=== PATIENT | female | born 1955 | race Caucasian/White ===

== ENCOUNTER → 2016-06-18 | Outpatient (CLI) | payer OTHER ==
[~2016-06-18] MED LIST: ALDACTONE50 M1 PO; ANAPROX DS550 MG PO; ATORVASTATIN CA40 MG PO; BACTRIM DS 8001 TA1 PO; CEFEPIME1 GM/50 ML IV; CEFUROXIME AXE250 MG PO; CIPRO250 MG PO; CYCLOBENZAPRINE5 M3 PO; CYMBALTA60 MG PO; DAYPRO600 M1 PO; DUONEB 3 MG/3 ML3 M1 INH; FLEXERIL10 MG PO; HEP-LOCK100 U/ML IV; HYDROCODONE BIT1 T11 PO; INDERAL10 MG PO; K-Dur 20MEQ20 MEQ PO; KRISTALOSE20 GM/PACK PO; LASIX20 MG PO; LEVOTHYROXIN0.025 MG PO; LIPITOR; MACROBID100 M1 PO; MEDROL DOSEPAK4 MG PO; MOBIC15 MG PO; Micro K10 MEQ PO; Motrin,Rufen800 MG PO; NORCO 5-325 TA1 EACH PO; OMEPRAZOLE20 M1 PO; OMEPRAZOLE20 MG PO; OXYBUTYNIN CHLOR5 MG PO; PRENATAL1 TA3 PO; PRISTIQ100 MG PO; PRISTIQ50 MG PO; ROBAXIN750 MG PO; SPIRIVA18 MCG PO; STRATTERA100 MG; SYNTHROID25 MCG PO; TOVIAZ4 MG; VENTOLIN H0.09 MG/AC INH; VICODIN 5/500 505 MG PO; VITAMIN D2000 IU PO; VITAMIN E400 UNI1 PO
[2016-06-18 10:33] LABS: BASO % 0.7 % (0.0-1.0); EOS % 0.5 % (1.0-4.0); HEMATOCRIT 42.8 % (37.0-47.0); HEMOGLOBIN 14.6 g/dl (12.0-16.0); LYMPH # 1.6 10*3/uL (1.3-4.4); LYMPH % 26.8 % (27.0-41.0); MEAN CELL VOLUME 97.3 fl (81.0-99.0); MEAN CORPUSCULAR HGB 33.2 pg (27.0-31.0); MEAN CORPUSCULAR HGB CONC 34.1 g/dl (33.0-37.0); MEAN PLATELET VOLUME 9.8 fl (9.6-12.3); MONO # 0.6 10*3/uL (0.1-1.0); NEUT # 3.7 10*3/uL (2.3-7.9); NEUT % 61.8 % (47.0-73.0); PLATELET COUNT AUTOMATED 143 10*3/uL (130-400); RED CELL DISTRI WIDTH 13.6 % (0-14.5)
[2016-06-18 10:54] LABS: INTERNATIONAL NORM RATIO 1.1 (2.0-3.5); PROTHROMBIN TIME 11.6 SECONDS (9.0-12.4)
[2016-06-18 10:55] LABS: ALBUMIN 3.1 gm/dl (3.1-4.5); ALKALINE PHOSPHATASE 103 U/L (45-117); BILIRUBIN, DIRECT 0.4 mg/dL (0.0-0.2); BILIRUBIN, TOTAL 1.8 mg/dl (0.2-1.0); BUN 8 mg/dl (7-24); CARBON DIOXIDE 30 mmol/L (21-32); CHLORIDE 103 mmol/L (98-107); CHOLESTEROL 152 mg/dL (<200); EST GLOM FILT AFRICAN AMERICAN > 60 ml/min; GLUCOSE 129 mg/dL (65-99); HDL CHOLESTEROL 86 mg/dl (40-60); LDL CHOLESTEROL 53 mg/dL (9-159); POTASSIUM 4.2 mmol/L (3.5-5.1); SGOT/AST 44 IU/L (3-35); SGPT/ALT 40 U/L (12-78); SODIUM 142 mmol/L (136-145); TRIGLYCERIDES 63 mg/dl (<150); VLDL CHOLESTEROL 13 mg/dL (6-40)
== END | disposition home or self-care (01) ==
LOC: LAB 10:06
PROVIDERS: Nurse Practitioner Family
DX: K74.60 Unspecified cirrhosis of liver (principal); K75.81 Nonalcoholic steatohepatitis (NASH)

== ENCOUNTER → 2016-08-29 | Outpatient (CLI) | payer OTHER | END | disposition home or self-care (01) | LOC: MAMMO 12:00 | DX: Z12.31 Encounter for screening mammogram for malignant neoplasm of breast (principal); Z13.820 Encounter for screening for osteoporosis; Z78.0 Asymptomatic menopausal state; Z90.710 Acquired absence of both cervix and uterus; Z85.42 Personal history of malignant neoplasm of other parts of uterus ==

== ENCOUNTER → 2016-12-10 | Outpatient (CLI) | payer OTHER ==
[2016-12-10 09:07] LABS: BASO # 0.1 10*3/uL (0.0-0.1); EOS # 0.1 10*3/uL (0.0-0.4); EOS % 0.9 % (1.0-4.0); HEMOGLOBIN 14.7 g/dl (12.0-16.0); LYMPH # 1.7 10*3/uL (1.3-4.4); LYMPH % 29.5 % (27.0-41.0); MEAN CELL VOLUME 100.5 fl (81.0-99.0); MEAN CORPUSCULAR HGB 34.3 pg (27.0-31.0); MEAN CORPUSCULAR HGB CONC 34.2 g/dl (33.0-37.0); MEAN PLATELET VOLUME 9.5 fl (9.6-12.3); MONO # 0.6 10*3/uL (0.1-1.0); MONO % 10.4 % (3.0-9.0); NEUT # 3.4 10*3/uL (2.3-7.9); PLATELET COUNT AUTOMATED 167 10*3/uL (130-400); RED BLOOD COUNT 4.28 10*6/uL (4.10-5.10); RED CELL DISTRI WIDTH 13.4 % (0-14.5); WHITE BLOOD COUNT 5.9 10*3/uL (4.8-10.8)
[2016-12-10 09:35] LABS: INTERNATIONAL NORM RATIO 1.1 (2.0-3.5)
[2016-12-10 09:39] LABS: ALBUMIN 2.9 gm/dl (3.1-4.5); BILIRUBIN, DIRECT 0.4 mg/dL (0.0-0.2); BUN 9 mg/dl (7-24); CHLORIDE 102 mmol/L (98-107); CREATININE 0.98 mg/dL (0.55-1.02); LIPASE 237 U/L (73-393); SGOT/AST 45 IU/L (3-35); SGPT/ALT 30 U/L (12-78); SODIUM 138 mmol/L (136-145)
[2016-12-10 09:41] LABS: ALKALINE PHOSPHATASE 102 U/L (45-117)
== END | disposition home or self-care (01) ==
LOC: LAB 08:33 → US 09:30
PROVIDERS: Nurse Practitioner Family
DX: K74.69 Other cirrhosis of liver (principal); J44.9 Chronic obstructive pulmonary disease, unspecified; I50.9 Heart failure, unspecified; N20.0 Calculus of kidney; I85.00 Esophageal varices without bleeding; J40 Bronchitis, not specified as acute or chronic; E11.9 Type 2 diabetes mellitus without complications; E55.9 Vitamin D deficiency, unspecified

== ENCOUNTER 2017-04-01 13:43 | Inpatient (IN) | payer OTHER ==
[~2017-04-01] VITALS: Ht 175.2 cm; Wt 98.2 kg
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
[~2017-04-01 13:43] MED LIST changes: +KRISTALOSE20 GM PO; -KRISTALOSE20 GM/PACK PO
[2017-04-01 13:58] VITALS: BP 85/50
[2017-04-01 14:41] VITALS: BP 100/62
[2017-04-01 15:02] LABS: BASO % 0.3 % (0.0-1.0); HEMATOCRIT 44.7 % (37.0-47.0); HEMOGLOBIN 15.3 g/dl (12.0-16.0); LYMPH # 0.4 10*3/uL (1.3-4.4); LYMPH % 3.8 % (27.0-41.0); MEAN CELL VOLUME 98.2 fl (81.0-99.0); MEAN CORPUSCULAR HGB 33.6 pg (27.0-31.0); MEAN CORPUSCULAR HGB CONC 34.2 g/dl (33.0-37.0); MEAN PLATELET VOLUME 10.1 fl (9.6-12.3); MONO # 0.7 10*3/uL (0.1-1.0); MONO % 6.7 % (3.0-9.0); NEUT # 8.7 10*3/uL (2.3-7.9); NEUT % 88.7 % (47.0-73.0); PLATELET COUNT AUTOMATED 114 10*3/uL (130-400); RED BLOOD COUNT 4.55 10*6/uL (4.10-5.10); RED CELL DISTRI WIDTH 13.1 % (0-14.5); WHITE BLOOD COUNT 9.8 10*3/uL (4.8-10.8)
[2017-04-01 15:17] LABS: ALBUMIN 2.8 gm/dl (3.1-4.5); CREATININE 1.39 mg/dL (0.55-1.02); POTASSIUM 4.5 mmol/L (3.5-5.1); TOTAL PROTEIN 6.4 gm/dL (6.4-8.2)
[2017-04-01 15:25] LABS: INTERNATIONAL NORM RATIO 1.2 (2.0-3.5)
[2017-04-01 16:30] LABS: BILIRUBIN 2+ (NEGATIVE); BLOOD TRACE-INTACT (NEGATIVE); CLARITY SL CLOUDY (CLEAR); COLOR ORANGE (YELLOW); GLUCOSE TRACE (NEGATIVE); KETONE TRACE (NEGATIVE); NITRITE POSITIVE (NEGATIVE)
[2017-04-01 16:34] LABS: LEUKO ESTERASE 2+ (NEGATIVE)
[2017-04-01 16:39] LABS: BACTERIA 4+; WBC 51-100 wbc/hpf (0-5)
[2017-04-01 18:24] VITALS: BP 103/56
[2017-04-01] MEDS ORDERED: METFORMIN500 MG PO (18:43)
[2017-04-01] MEDS ORDERED: PROPRANOLOL HCL10 MG PO (18:43)
[2017-04-01] MEDS ORDERED: ZETIA10 MG PO (18:44)
[2017-04-01 19:37] VITALS: BP 106/50
[2017-04-01 19:40] VITALS: BP 101/52
[2017-04-02 04:00] VITALS: BP 103/56
[2017-04-02 07:47] LABS: HEMATOCRIT 38.8 % (37.0-47.0); HEMOGLOBIN 13.4 g/dl (12.0-16.0); MEAN CORPUSCULAR HGB 33.8 pg (27.0-31.0); MEAN CORPUSCULAR HGB CONC 34.5 g/dl (33.0-37.0); MEAN PLATELET VOLUME 10.6 fl (9.6-12.3); PLATELET COUNT AUTOMATED 100 10*3/uL (130-400); RED BLOOD COUNT 3.96 10*6/uL (4.10-5.10); RED CELL DISTRI WIDTH 13.1 % (0-14.5); WHITE BLOOD COUNT 8.4 10*3/uL (4.8-10.8)
[2017-04-02 08:00] VITALS: BP 108/50
[2017-04-02 08:26] LABS: ALBUMIN 2.5 gm/dl (3.1-4.5); BUN 20 mg/dl (7-24); CHLORIDE 103 mmol/L (98-107); CHOLESTEROL 68 mg/dL (<200); CREATININE 1.03 mg/dL (0.55-1.02); POTASSIUM 3.7 mmol/L (3.5-5.1); SGOT/AST 45 IU/L (3-35); SGPT/ALT 32 U/L (12-78); SODIUM 137 mmol/L (136-145); TRIGLYCERIDES 46 mg/dl (<150); VLDL CHOLESTEROL 9 mg/dL (6-40)
[2017-04-02 08:27] LABS: PLATELET SUFFICIENCY LOW (NORMAL); TOTAL CELLS COUNTED 100 #CELLS
[2017-04-02 08:32] LABS: ALKALINE PHOSPHATASE 56 U/L (45-117); HDL CHOLESTEROL 44 mg/dl (40-60); LDL CHOLESTEROL 15 mg/dL (9-159); TOTAL PROTEIN 5.8 gm/dL (6.4-8.2)
[2017-04-02 09:02] LABS: VITAMIN D, 25-HYDROXY 17.7 ng/mL (30-100)
[2017-04-02 12:00] VITALS: BP 108/52
[2017-04-02] MEDS ORDERED: VITAMIN E400 UNI3 PO (13:24)
[2017-04-02] MEDS ORDERED: PREDNISONE10 MG PO (15:33)
[2017-04-02] MEDS ORDERED: GLUCOTROL5 MG PO (15:33)
[2017-04-02] MEDS ORDERED: NATURE'S BLEND F1 MG PO (15:33)
[2017-04-02] MEDS ORDERED: VITAMIN D5000 UNI1 PO (15:33)
[2017-04-02] MEDS ORDERED: VIBRAMYCIN100 MG PO (15:33)
== END 2017-04-02 18:35 | disposition home or self-care (01) | DRG 871 ==
LOC: ED 13:43 → 5E 17:47 → EDHOLD 17:47 → 5E 18:30
PROVIDERS: Internal Medicine Hospice and Palliative Medicine; Physician Assistant
DX: A41.9 Sepsis, unspecified organism (principal); J18.9 Pneumonia, unspecified organism; N17.0 Acute kidney failure with tubular necrosis; E44.0 Moderate protein-calorie malnutrition; D69.6 Thrombocytopenia, unspecified; E83.42 Hypomagnesemia; K70.30 Alcoholic cirrhosis of liver without ascites; J44.0 Chronic obstructive pulmonary disease with (acute) lower respiratory infection; J44.1 Chronic obstructive pulmonary disease with (acute) exacerbation; N39.0 Urinary tract infection, site not specified; K76.0 Fatty (change of) liver, not elsewhere classified; R31.9 Hematuria, unspecified; R65.20 Severe sepsis without septic shock; E80.6 Other disorders of bilirubin metabolism; F17.210 Nicotine dependence, cigarettes, uncomplicated; E11.9 Type 2 diabetes mellitus without complications; E78.00 Pure hypercholesterolemia, unspecified; K21.9 Gastro-esophageal reflux disease without esophagitis; F32.9 Major depressive disorder, single episode, unspecified; E03.9 Hypothyroidism, unspecified; G47.33 Obstructive sleep apnea (adult) (pediatric); M54.5 Low back pain; G89.29 Other chronic pain; E66.09 Other obesity due to excess calories; R33.9 Retention of urine, unspecified; I49.3 Ventricular premature depolarization; Z68.33 Body mass index [BMI] 33.0-33.9, adult; Z90.710 Acquired absence of both cervix and uterus; Z82.49 Family history of ischemic heart disease and other diseases of the circulatory system; Z79.51 Long term (current) use of inhaled steroids; Z79.84 Long term (current) use of oral hypoglycemic drugs; Z71.6 Tobacco abuse counseling

== ENCOUNTER 2017-04-05 09:02 | Inpatient (IN) | payer OTHER ==
[~2017-04-05] VITALS: Ht 175.2 cm; Wt 99.6 kg
[~2017-04-05 09:02] MED LIST changes: +GLUCOTROL5 MG PO; +METFORMIN500 MG PO; +NATURE'S BLEND F1 MG PO; +PREDNISONE10 MG PO; +PROPRANOLOL HCL10 MG PO; +VIBRAMYCIN100 MG PO; +VITAMIN D5000 UNI1 PO; +VITAMIN E400 UNI3 PO; +ZETIA10 MG PO
[2017-04-05 09:11] VITALS: BP 119/71
[2017-04-05 09:27] VITALS: BP 119/71; BP 122/78
[2017-04-05 09:35] LABS: BASO % 0.2 % (0.0-1.0); EOS % 0.5 % (1.0-4.0); HEMATOCRIT 44.2 % (37.0-47.0); HEMOGLOBIN 15.1 g/dl (12.0-16.0); LYMPH # 0.8 10*3/uL (1.3-4.4); LYMPH % 13.3 % (27.0-41.0); MEAN CELL VOLUME 97.6 fl (81.0-99.0); MEAN CORPUSCULAR HGB 33.3 pg (27.0-31.0); MEAN CORPUSCULAR HGB CONC 34.2 g/dl (33.0-37.0); MEAN PLATELET VOLUME 9.9 fl (9.6-12.3); MONO # 0.7 10*3/uL (0.1-1.0); MONO % 11.6 % (3.0-9.0); NEUT # 4.5 10*3/uL (2.3-7.9); NEUT % 74.1 % (47.0-73.0); PLATELET COUNT AUTOMATED 107 10*3/uL (130-400); RED BLOOD COUNT 4.53 10*6/uL (4.10-5.10); RED CELL DISTRI WIDTH 13.3 % (0-14.5); WHITE BLOOD COUNT 6.1 10*3/uL (4.8-10.8)
[2017-04-05 09:52] LABS: ALBUMIN 2.6 gm/dl (3.1-4.5); ALKALINE PHOSPHATASE 99 U/L (45-117); BUN 12 mg/dl (7-24); CHLORIDE 99 mmol/L (98-107); CREATININE 0.77 mg/dL (0.55-1.02); SGOT/AST 116 IU/L (3-35); SGPT/ALT 84 U/L (12-78); SODIUM 136 mmol/L (136-145); TOTAL PROTEIN 6.3 gm/dL (6.4-8.2)
[2017-04-05 09:55] LABS: TROPONIN I < 0.015 ng/ml (<0.045)
[2017-04-05 09:59] LABS: BILIRUBIN NEGATIVE (NEGATIVE); BLOOD NEGATIVE (NEGATIVE); CLARITY CLEAR (CLEAR); COLOR YELLOW (YELLOW); GLUCOSE NEGATIVE (NEGATIVE); KETONE NEGATIVE (NEGATIVE); LEUKO ESTERASE TRACE (NEGATIVE); NITRITE NEGATIVE (NEGATIVE); SPECIFIC GRAVITY <= 1.005 (1.005-1.030)
[2017-04-05 10:05] LABS: BACTERIA TRACE
[2017-04-05 10:25] VITALS: BP 133/71
[2017-04-05 11:30] VITALS: BP 110/72
[2017-04-05] MEDS ORDERED: GLIPIZIDE5 MG PO (12:28)
[2017-04-05] MEDS ORDERED: METFORMIN500 MG PO (12:29)
[2017-04-05 16:00] VITALS: BP 125/62
[2017-04-05 20:00] VITALS: BP 109/65
[2017-04-06] VITALS: BP 115/71
[2017-04-06 07:13] LABS: HEMATOCRIT 39.7 % (37.0-47.0); HEMOGLOBIN 13.5 g/dl (12.0-16.0); LYMPH # 0.6 10*3/uL (1.3-4.4); LYMPH % 11.3 % (27.0-41.0); MEAN CELL VOLUME 97.1 fl (81.0-99.0); MEAN PLATELET VOLUME 10.3 fl (9.6-12.3); MONO # 0.6 10*3/uL (0.1-1.0); MONO % 10.8 % (3.0-9.0); NEUT # 4.4 10*3/uL (2.3-7.9); NEUT % 77.7 % (47.0-73.0); PLATELET COUNT AUTOMATED 88 10*3/uL (130-400); RED BLOOD COUNT 4.09 10*6/uL (4.10-5.10); RED CELL DISTRI WIDTH 13.1 % (0-14.5); WHITE BLOOD COUNT 5.7 10*3/uL (4.8-10.8)
[2017-04-06 07:41] LABS: ALBUMIN 2.3 gm/dl (3.1-4.5); ALKALINE PHOSPHATASE 87 U/L (45-117); BUN 13 mg/dl (7-24); CHLORIDE 102 mmol/L (98-107); CREATININE 0.72 mg/dL (0.55-1.02); SGOT/AST 67 IU/L (3-35); SGPT/ALT 63 U/L (12-78); TOTAL PROTEIN 5.5 gm/dL (6.4-8.2)
[2017-04-06 07:55] LABS: SODIUM 135 mmol/L (136-145)
[2017-04-06 08:00] VITALS: BP 124/66
[2017-04-06 12:00] VITALS: BP 123/73
[2017-04-06 16:00] VITALS: BP 122/64
[2017-04-06 20:00] VITALS: BP 124/55
[2017-04-07] VITALS: BP 120/63
[2017-04-07 07:04] LABS: HEMATOCRIT 41.2 % (37.0-47.0); HEMOGLOBIN 14.4 g/dl (12.0-16.0); LYMPH # 0.8 10*3/uL (1.3-4.4); LYMPH % 11.2 % (27.0-41.0); MEAN CELL VOLUME 94.5 fl (81.0-99.0); MEAN PLATELET VOLUME 10.3 fl (9.6-12.3); MONO # 0.7 10*3/uL (0.1-1.0); MONO % 9.5 % (3.0-9.0); NEUT # 5.7 10*3/uL (2.3-7.9); NEUT % 78.5 % (47.0-73.0); PLATELET COUNT AUTOMATED 88 10*3/uL (130-400); RED BLOOD COUNT 4.36 10*6/uL (4.10-5.10); WHITE BLOOD COUNT 7.3 10*3/uL (4.8-10.8)
[2017-04-07 07:20] LABS: BUN 13 mg/dl (7-24); CHLORIDE 98 mmol/L (98-107); CREATININE 0.82 mg/dL (0.55-1.02); POTASSIUM 3.9 mmol/L (3.5-5.1); SODIUM 134 mmol/L (136-145)
[2017-04-07 08:00] VITALS: BP 156/72
[2017-04-07 12:00] VITALS: BP 133/63
[2017-04-07 16:00] VITALS: BP 124/62
[2017-04-07 20:00] VITALS: BP 135/74
[2017-04-08] VITALS: BP 133/78; BP 144/61
[2017-04-08 04:00] VITALS: BP 101/54
[2017-04-08 07:00] LABS: HEMOGLOBIN 14.2 g/dl (12.0-16.0); MEAN CORPUSCULAR HGB 32.6 pg (27.0-31.0); MEAN CORPUSCULAR HGB CONC 34.6 g/dl (33.0-37.0); MEAN PLATELET VOLUME 10.3 fl (9.6-12.3); PLATELET COUNT AUTOMATED 77 10*3/uL (130-400); RED BLOOD COUNT 4.36 10*6/uL (4.10-5.10); RED CELL DISTRI WIDTH 13.1 % (0-14.5); WHITE BLOOD COUNT 5.4 10*3/uL (4.8-10.8)
[2017-04-08 07:32] LABS: CHLORIDE 98 mmol/L (98-107); SODIUM 135 mmol/L (136-145)
[2017-04-08 07:36] LABS: PLATELET SUFFICIENCY LOW (NORMAL); TOTAL CELLS COUNTED 100 #CELLS
[2017-04-08 07:43] LABS: BUN 15 mg/dl (7-24); CREATININE 0.83 mg/dL (0.55-1.02)
[2017-04-08 08:00] VITALS: BP 102/62
[2017-04-08 12:00] VITALS: BP 120/68
[2017-04-08 16:00] VITALS: BP 125/69
[2017-04-08 20:00] VITALS: BP 112/56
[2017-04-09] VITALS: BP 132/67
[2017-04-09 06:54] LABS: HEMATOCRIT 39.4 % (37.0-47.0); HEMOGLOBIN 13.8 g/dl (12.0-16.0); MEAN CORPUSCULAR HGB 32.9 pg (27.0-31.0); MEAN PLATELET VOLUME 10.2 fl (9.6-12.3); PLATELET COUNT AUTOMATED 97 10*3/uL (130-400); RED BLOOD COUNT 4.19 10*6/uL (4.10-5.10); WHITE BLOOD COUNT 6.4 10*3/uL (4.8-10.8)
[2017-04-09 07:08] LABS: BUN 15 mg/dl (7-24); CHLORIDE 98 mmol/L (98-107); CREATININE 0.77 mg/dL (0.55-1.02); POTASSIUM 3.8 mmol/L (3.5-5.1); SODIUM 133 mmol/L (136-145)
[2017-04-09 07:32] LABS: TOTAL CELLS COUNTED 100 #CELLS
[2017-04-09 07:33] LABS: PLATELET SUFFICIENCY LOW (NORMAL)
[2017-04-09 08:00] VITALS: BP 141/70
[2017-04-09] MEDS ORDERED: DULE1ARO INH (09:39)
[2017-04-09] MEDS ORDERED: PREDNISONE10 MG PO (09:39)
[2017-04-09] MEDS ORDERED: LEVAQUIN500 M2 PO (09:39)
[2017-04-09] MEDS ORDERED: DUONEB 3 MG/3 ML3 M1 INH (09:41)
[2017-04-09] MEDS ORDERED: NEBULIZER (09:41)
[2017-04-09 12:00] VITALS: BP 110/50
== END 2017-04-09 16:03 | disposition home or self-care (01) | DRG 193 ==
LOC: ED 09:02 → EDHOLD 10:30 → 5E 10:30
PROVIDERS: Family Medicine Adult Medicine; Internal Medicine; Internal Medicine Hospice and Palliative Medicine; Nurse Practitioner Family
DX: J18.9 Pneumonia, unspecified organism (principal); J96.21 Acute and chronic respiratory failure with hypoxia; E43 Unspecified severe protein-calorie malnutrition; E11.65 Type 2 diabetes mellitus with hyperglycemia; E87.1 Hypo-osmolality and hyponatremia; J44.0 Chronic obstructive pulmonary disease with (acute) lower respiratory infection; A59.9 Trichomoniasis, unspecified; J44.1 Chronic obstructive pulmonary disease with (acute) exacerbation; E03.9 Hypothyroidism, unspecified; F17.200 Nicotine dependence, unspecified, uncomplicated; G47.33 Obstructive sleep apnea (adult) (pediatric); F32.9 Major depressive disorder, single episode, unspecified; E55.9 Vitamin D deficiency, unspecified; K21.9 Gastro-esophageal reflux disease without esophagitis; E87.6 Hypokalemia; E53.8 Deficiency of other specified B group vitamins; E78.00 Pure hypercholesterolemia, unspecified; Z85.41 Personal history of malignant neoplasm of cervix uteri; Z90.710 Acquired absence of both cervix and uterus; Z80.41 Family history of malignant neoplasm of ovary; Z71.6 Tobacco abuse counseling; Z79.51 Long term (current) use of inhaled steroids; Z79.2 Long term (current) use of antibiotics; Z79.84 Long term (current) use of oral hypoglycemic drugs; Z79.899 Other long term (current) drug therapy; Z68.32 Body mass index [BMI] 32.0-32.9, adult

== ENCOUNTER → 2017-06-23 | Outpatient (CLI) | payer OTHER ==
[~2017-06-23] MED LIST changes: +DULE1ARO INH; +GLIPIZIDE5 MG PO; +LEVAQUIN500 M2 PO; +NEBULIZER
== END | disposition home or self-care (01) ==
LOC: LAB 14:29 → CT 15:00 → US 16:00
DX: K80.50 Calculus of bile duct without cholangitis or cholecystitis without obstruction (principal); K74.60 Unspecified cirrhosis of liver; Z90.710 Acquired absence of both cervix and uterus

== ENCOUNTER → 2017-06-24 | Outpatient (CLI) | payer OTHER ==
[2017-06-24 12:45] LABS: BILIRUBIN NEGATIVE (NEGATIVE); BLOOD TRACE-INTACT (NEGATIVE); CLARITY CLOUDY (CLEAR); COLOR YELLOW (YELLOW); GLUCOSE NEGATIVE (NEGATIVE); KETONE NEGATIVE (NEGATIVE); LEUKO ESTERASE 2+ (NEGATIVE); NITRITE NEGATIVE (NEGATIVE); PH 5.5 (5.0-9.0)
[2017-06-24 13:17] LABS: BACTERIA 4+; WBC TNTC wbc/hpf (0-5)
== END | disposition home or self-care (01) ==
LOC: LAB 12:06
PROVIDERS: Urology
DX: N39.0 Urinary tract infection, site not specified (principal)

== ENCOUNTER 2017-09-12 11:50 | Emergency (ER) | payer OTHER ==
[~2017-09-12] VITALS: Ht 175.2 cm; Wt 90.7 kg
[2017-09-12 11:51] VITALS: BP 112/59
[2017-09-12] MEDS ORDERED: PREDNISONE10 MG PO (12:16)
== END 2017-09-12 12:24 | disposition home or self-care (01) ==
LOC: ED 11:50
DX: L25.9 Unspecified contact dermatitis, unspecified cause (principal); J44.9 Chronic obstructive pulmonary disease, unspecified; K21.9 Gastro-esophageal reflux disease without esophagitis; E78.00 Pure hypercholesterolemia, unspecified; E03.9 Hypothyroidism, unspecified; G43.909 Migraine, unspecified, not intractable, without status migrainosus; E66.9 Obesity, unspecified; G47.33 Obstructive sleep apnea (adult) (pediatric); E11.65 Type 2 diabetes mellitus with hyperglycemia; F17.200 Nicotine dependence, unspecified, uncomplicated; Z90.710 Acquired absence of both cervix and uterus; Z79.899 Other long term (current) drug therapy

== ENCOUNTER → 2017-09-17 | Outpatient (CLI) | payer OTHER ==
[2017-09-17 13:16] LABS: CLARITY TURBID (CLEAR); COLOR YELLOW (YELLOW); GLUCOSE NEGATIVE (NEGATIVE)
[2017-09-17 13:17] LABS: BILIRUBIN NEGATIVE (NEGATIVE); BLOOD 1+ (NEGATIVE); KETONE NEGATIVE (NEGATIVE); LEUKO ESTERASE 3+ (NEGATIVE); NITRITE POSITIVE (NEGATIVE); PH 6.5 (5.0-9.0); SPECIFIC GRAVITY 1.005 (1.005-1.030); UROBILINOGEN 0.2 E.U./dl (0.2-1.0)
[2017-09-17 13:23] LABS: WBC TNTC wbc/hpf (0-5)
[2017-09-17 13:26] LABS: BACTERIA 4+; EPITHELIAL CELLS 15-20
[2017-09-17 13:27] LABS: RBC 16-20 rbc/hpf (0-2)
== END | disposition home or self-care (01) ==
LOC: LAB 10:40
PROVIDERS: Urology
DX: N39.0 Urinary tract infection, site not specified (principal)

== ENCOUNTER → 2017-10-03 | Outpatient (CLI) | payer OTHER | END | disposition home or self-care (01) | LOC: US 07:38 | DX: K80.20 Calculus of gallbladder without cholecystitis without obstruction (principal) ==

== ENCOUNTER → 2017-12-12 | Day surgery (SDC) | payer OTHER ==
[~2017-12-12] VITALS: Ht 175.2 cm; Wt 89.4 kg
[~2017-12-12] MED LIST changes: +CIPRO500 MG PO; +FUROSEMIDE40 MG PO; +LEVOTHYROXINE125 MCG PO; +POTASSIUM CHLO10 ME5 PO; +PREDNISONE20 M1 PO; +SPIRONOLACTONE50 M1 PO
--- NOTE | ~2017-12-12 | PROC NOTE ---
[place], [place] PROCEDURE NOTE NAME[id number] UNIT #: [id number] ROOM: DOCTOR: TOBIN SWEENEY MD BIRTHDATE: [birth year] DOS: PROCEDURE: 1. Esophagogastroduodenoscopy and biopsy. 2. Colonoscopy and polypectomy. INDICATIONS: Cirrhosis and history of colon polyps. An informed consent was obtained from the patient after indication of procedures, the alternatives and potential complications were explained to her. PROCEDURE MEDICATION: Sedation was administered by Anesthesiology Department. Scope used was Olympus pediatric colonoscope variable stiffness GIF-180, depth of insertion of the upper endoscopy was to the descending duodenum and with the colonoscopy to the cecum, which was identified by the usual landmarks, the appendiceal orifice, ileocecal valve and triangular fold, in addition to transillumination in the right lower quadrant. FINDINGS: After adequate sedation, the patient was placed in left lateral decubitus position. Upper endoscopy was performed first. The scope was introduced under direct visualization through the upper esophageal sphincter into the esophagus. Esophageal mucosa showed evidence of a small grade 1 esophageal varices. The lower esophageal sphincter was identified at 38 cm from incisors. Stomach was then intubated. Gastric mucosa inspected. Mild portal gastropathy pattern was noted in addition to moderate gastritis in the antrum and a small gastric AVM. A GONZALEZ test was performed from gastric antrum and body. On retroflexed views in the fundus, no hiatal hernia was seen. Pylorus was intubated easily. The duodenal bulb and descending duodenum were within normal range. The scope was then withdrawn after the stomach was decompressed. We then proceeded with the colonoscopy. Rectal examination showed a diminished sphincter tone and no external hemorrhoids. The scope was introduced into the rectum, then advanced to the cecum with mild difficulty due to looping the left colon. The prep was adequate. Two polyps were identified in the distal transverse colon, a 5 and a 10 mm polyps, both polyps were removed with the cold mini snare and recovered. The remaining colon mucosa showed evidence of moderate left-sided diverticular disease and no other abnormalities. Retroflexed views in the rectum revealed grade 1 internal hemorrhoids. The scope was then withdrawn after the rectum was decompressed. The patient tolerated the procedures well. IMPRESSION: 1. Small grade 1 esophageal varices. 2. Mild portal gastropathy. 3. Gastritis, GONZALEZ test performed. 4. Small gastric AVM. 5. Colon polyps x 2, removed. 6. Left-sided diverticular disease. 7. Internal hemorrhoids. [place], [place] PROCEDURE NOTE NAME: LARISA ARCHER UNIT #: [id number] ROOM: DOCTOR: [place],TOBIN BIRTHDATE: [birth year] PLAN: We will review the histopathology and GONZALEZ test results and treat the patient accordingly. Office followup will be scheduled in 1-2 weeks. TOBIN SWEENEY MD CM:PROCNOTE:PROCEDURE NOTE [id number] TOBIN SWEENEY MD
[2017-12-12 09:27] VITALS: BP 113/52
[2017-12-12 09:45] VITALS: BP 115/49
[2017-12-12 10:00] VITALS: BP 104/53
[2017-12-12 10:15] VITALS: BP 121/61
[2017-12-12 10:26] VITALS: BP 130/61
== END | disposition home or self-care (01) ==
LOC: SDC 12-09 02:02
DX: K63.5 Polyp of colon (principal); K57.30 Diverticulosis of large intestine without perforation or abscess without bleeding; K56.2 Volvulus; K64.0 First degree hemorrhoids; K29.60 Other gastritis without bleeding; Q27.33 Arteriovenous malformation of digestive system vessel; K74.60 Unspecified cirrhosis of liver; I85.10 Secondary esophageal varices without bleeding; K21.9 Gastro-esophageal reflux disease without esophagitis; I50.9 Heart failure, unspecified; E78.00 Pure hypercholesterolemia, unspecified; E11.40 Type 2 diabetes mellitus with diabetic neuropathy, unspecified; J44.9 Chronic obstructive pulmonary disease, unspecified; F41.8 Other specified anxiety disorders; F17.210 Nicotine dependence, cigarettes, uncomplicated; M19.90 Unspecified osteoarthritis, unspecified site; E66.9 Obesity, unspecified; Z86.010 Personal history of colon polyps; Z86.73 Personal history of transient ischemic attack (TIA), and cerebral infarction without residual deficits; Z90.710 Acquired absence of both cervix and uterus; Z85.42 Personal history of malignant neoplasm of other parts of uterus; Z98.41 Cataract extraction status, right eye; Z79.899 Other long term (current) drug therapy; Z79.84 Long term (current) use of oral hypoglycemic drugs; Z88.1 Allergy status to other antibiotic agents; Z88.8 Allergy status to other drugs, medicaments and biological substances; Z80.9 Family history of malignant neoplasm, unspecified

== ENCOUNTER → 2017-12-17 | Outpatient (CLI) | payer OTHER | END | disposition home or self-care (01) | LOC: US 07:30 | DX: K80.20 Calculus of gallbladder without cholecystitis without obstruction (principal); K74.60 Unspecified cirrhosis of liver; K82.8 Other specified diseases of gallbladder; Z87.442 Personal history of urinary calculi ==

== ENCOUNTER → 2018-05-14 | Outpatient (CLI) | payer OTHER ==
[2018-05-14 08:54] LABS: BASO # 0.1 10*3/uL (0.0-0.1); BILIRUBIN NEGATIVE (NEGATIVE); BLOOD NEGATIVE (NEGATIVE); CLARITY CLOUDY (CLEAR); COLOR YELLOW (YELLOW); EOS # 0.1 10*3/uL (0.0-0.4); EOS % 0.8 % (1.0-4.0); GLUCOSE NEGATIVE (NEGATIVE); KETONE NEGATIVE (NEGATIVE); LEUKO ESTERASE 2+ (NEGATIVE); LYMPH # 1.8 10*3/uL (1.3-4.4); MEAN CELL VOLUME 97.9 fl (81.0-99.0); MEAN CORPUSCULAR HGB 32.6 pg (27.0-31.0); MEAN CORPUSCULAR HGB CONC 33.3 g/dl (33.0-37.0); MEAN PLATELET VOLUME 9.8 fl (9.6-12.3); MONO # 0.7 10*3/uL (0.1-1.0); NEUT # 3.4 10*3/uL (2.3-7.9); NITRITE POSITIVE (NEGATIVE); PLATELET COUNT AUTOMATED 145 10*3/uL (130-400); RED BLOOD COUNT 4.29 10*6/uL (4.10-5.10); RED CELL DISTRI WIDTH 13.4 % (0-14.5); SPECIFIC GRAVITY 1.015 (1.005-1.030); UROBILINOGEN 0.2 E.U./dl (0.2-1.0); WHITE BLOOD COUNT 6.1 10*3/uL (4.8-10.8)
[2018-05-14 09:18] LABS: ALBUMIN 2.7 gm/dl (3.1-4.5); ALKALINE PHOSPHATASE 120 U/L (45-117); BUN 10 mg/dl (7-24); CHLORIDE 107 mmol/L (98-107); CREATININE 0.81 mg/dL (0.55-1.02); POTASSIUM 4.4 mmol/L (3.5-5.1); SGOT/AST 27 IU/L (3-35); SGPT/ALT 25 U/L (12-78); SODIUM 140 mmol/L (136-145); TOTAL PROTEIN 6.5 gm/dL (6.4-8.2)
[2018-05-14 09:20] LABS: BACTERIA 4+; WBC TNTC wbc/hpf (0-5)
== END | disposition home or self-care (01) ==
LOC: LAB 08:25 → CT 09:00
PROVIDERS: Urology
DX: N20.0 Calculus of kidney (principal); R31.9 Hematuria, unspecified

== ENCOUNTER → 2018-09-23 | Outpatient (CLI) | payer OTHER ==
[2018-09-23 11:17] LABS: BASO # 0.1 10*3/uL (0.0-0.1); BASO % 0.8 % (0.0-1.0); EOS % 0.6 % (1.0-4.0); HEMOGLOBIN 12.8 g/dl (12.0-16.0); LYMPH # 1.9 10*3/uL (1.3-4.4); LYMPH % 30.1 % (27.0-41.0); MEAN CORPUSCULAR HGB 32.2 pg (27.0-31.0); MEAN CORPUSCULAR HGB CONC 32.8 g/dl (33.0-37.0); MEAN PLATELET VOLUME 9.8 fl (9.6-12.3); MONO # 0.7 10*3/uL (0.1-1.0); MONO % 11.7 % (3.0-9.0); NEUT # 3.5 10*3/uL (2.3-7.9); NEUT % 56.6 % (47.0-73.0); PLATELET COUNT AUTOMATED 158 10*3/uL (130-400); RED BLOOD COUNT 3.98 10*6/uL (4.10-5.10); RED CELL DISTRI WIDTH 13.5 % (0-14.5); WHITE BLOOD COUNT 6.2 10*3/uL (4.8-10.8)
[2018-09-23 11:40] LABS: BILIRUBIN NEGATIVE (NEGATIVE); BLOOD 1+ (NEGATIVE); CLARITY CLOUDY (CLEAR); COLOR YELLOW (YELLOW); GLUCOSE NEGATIVE (NEGATIVE); KETONE NEGATIVE (NEGATIVE); LEUKO ESTERASE 2+ (NEGATIVE); NITRITE POSITIVE (NEGATIVE); SPECIFIC GRAVITY 1.025 (1.005-1.030)
[2018-09-23 11:44] LABS: BUN 10 mg/dl (7-24); CHLORIDE 106 mmol/L (98-107); POTASSIUM 4.3 mmol/L (3.5-5.1); SGOT/AST 26 IU/L (3-35); SODIUM 141 mmol/L (136-145); THYROXINE (T4) TOTAL 12.8 ug/dl (4.8-13.9); TOTAL PROTEIN 6.2 gm/dL (6.4-8.2)
[2018-09-23 11:45] LABS: ALKALINE PHOSPHATASE 92 U/L (45-117); SGPT/ALT 23 U/L (12-78); T3 UPTAKE 39 % (31-39)
[2018-09-23 12:45] LABS: BACTERIA 4+; WBC TNTC wbc/hpf (0-5)
[2018-09-29 16:09] LABS: BUSHITE 0.67 ratio (0.00-3.00); CALCIUM OXALATE 4.69 ratio (0.00-6.00); CALCIUM, URINE 10.2 mg/dL (Not Estab.); CALCIUM, URINE 158.1 mg/24 hr (100.0-300.0); CITRIC ACID (CITRATE) 510 mg/24 hr (320-1240); CREATININE, URINE 41.4 mg/dL (Not Estab.); CREATININE, URINE 641.7 mg/24 hr (800.0-1800.0); MAGNESIUM, URINE 2.4 mg/dL (Not Estab.); MONOSODIUM URATE 0.65 ratio (0.00-4.00); OSMOLALITY, URINE 194 (300-900); SODIUM, URINE 37 mmol/L (Not Estab.); SODIUM, URINE 57 (39-258); STRUVITE 0.01 ratio (0.00-1.00); URIC ACID 0.69 ratio (0.00-1.20)
== END | disposition home or self-care (01) ==
LOC: LAB 10:47
PROVIDERS: Urology
DX: N20.0 Calculus of kidney (principal)

== ENCOUNTER → 2018-11-19 | Outpatient (CLI) | payer OTHER | END | disposition home or self-care (01) | LOC: RAD 11:33 | DX: N20.0 Calculus of kidney (principal) ==

== ENCOUNTER → 2018-12-09 | Outpatient (CLI) | payer OTHER | END | disposition home or self-care (01) | LOC: US 14:50 | DX: N20.0 Calculus of kidney (principal) ==

== ENCOUNTER → 2019-01-09 | Outpatient (CLI) | payer OTHER ==
[2019-01-18 09:07] LABS: BUSHITE 1.86 ratio (0.00-3.00); CALCIUM OXALATE 4.19 ratio (0.00-6.00); CALCIUM, URINE 15.1 mg/dL (Not Estab.); CALCIUM, URINE 226.5 mg/24 hr (100.0-300.0); CITRIC ACID (CITRATE) 708 mg/24 hr (320-1240); CREATININE, URINE 51.5 mg/dL (Not Estab.); CREATININE, URINE 772.5 mg/24 hr (800.0-1800.0); MAGNESIUM, URINE 3.3 mg/dL (Not Estab.); MONOSODIUM URATE 1.31 ratio (0.00-4.00); OSMOLALITY, URINE 304 (300-900); SODIUM, URINE 59 mmol/L (Not Estab.); SODIUM, URINE 89 (39-258); STRUVITE 0.01 ratio (0.00-1.00); URIC ACID 0.69 ratio (0.00-1.20); pH 24 HR URINE 6.1 (.)
== END | disposition home or self-care (01) ==
LOC: LAB 10:51
PROVIDERS: Urology
DX: N20.0 Calculus of kidney (principal)

== ENCOUNTER → 2019-02-02 | Outpatient (CLI) | payer OTHER ==
[2019-02-02 13:00] LABS: BASO # 0.1 10*3/uL (0.0-0.1); BASO % 0.9 % (0.0-1.0); EOS # 0.1 10*3/uL (0.0-0.4); EOS % 1.1 % (1.0-4.0); HEMATOCRIT 39.8 % (37.0-47.0); HEMOGLOBIN 13.1 g/dl (12.0-16.0); LYMPH # 2.4 10*3/uL (1.3-4.4); LYMPH % 34.1 % (27.0-41.0); MEAN CELL VOLUME 96.1 fl (81.0-99.0); MEAN CORPUSCULAR HGB 31.6 pg (27.0-31.0); MEAN CORPUSCULAR HGB CONC 32.9 g/dl (33.0-37.0); MEAN PLATELET VOLUME 9.8 fl (9.6-12.3); MONO # 0.8 10*3/uL (0.1-1.0); MONO % 12.1 % (3.0-9.0); NEUT # 3.6 10*3/uL (2.3-7.9); NEUT % 51.5 % (47.0-73.0); PLATELET COUNT AUTOMATED 184 10*3/uL (130-400); RED BLOOD COUNT 4.14 10*6/uL (4.10-5.10); RED CELL DISTRI WIDTH 13.2 % (0-14.5)
[2019-02-02 13:22] LABS: ALKALINE PHOSPHATASE 100 U/L (45-117); BUN 14 mg/dl (7-24); CHLORIDE 102 mmol/L (98-107); CREATININE 1.07 mg/dL (0.55-1.02); POTASSIUM 4.1 mmol/L (3.5-5.1); SGOT/AST 28 IU/L (3-35); SGPT/ALT 25 U/L (12-78); SODIUM 134 mmol/L (136-145); TOTAL PROTEIN 6.8 gm/dL (6.4-8.2)
[2019-02-02 17:02] LABS: BILIRUBIN NEGATIVE (NEGATIVE); BLOOD NEGATIVE (NEGATIVE); CLARITY CLOUDY (CLEAR); COLOR YELLOW (YELLOW); GLUCOSE NEGATIVE (NEGATIVE); KETONE NEGATIVE (NEGATIVE); LEUKO ESTERASE 1+ (NEGATIVE); NITRITE POSITIVE (NEGATIVE); SPECIFIC GRAVITY <= 1.005 (1.005-1.030); UROBILINOGEN 0.2 E.U./dl (0.2-1.0)
[2019-02-02 17:16] LABS: BACTERIA 3+; WBC 31-40 wbc/hpf (0-5)
== END | disposition home or self-care (01) ==
LOC: LAB 12:31 → CT 13:00
PROVIDERS: Nurse Practitioner Family
DX: K74.60 Unspecified cirrhosis of liver (principal); N39.0 Urinary tract infection, site not specified; R31.9 Hematuria, unspecified; E11.9 Type 2 diabetes mellitus without complications

== ENCOUNTER → 2019-03-05 | Outpatient (CLI) | payer OTHER | END | disposition home or self-care (01) | LOC: US 09:08 | DX: K74.69 Other cirrhosis of liver (principal); K83.8 Other specified diseases of biliary tract; R16.1 Splenomegaly, not elsewhere classified ==

== ENCOUNTER → 2019-03-12 | Day surgery (SDC) | payer OTHER ==
[~2019-03-12] VITALS: Ht 175.2 cm; Wt 86.2 kg
[2019-03-12 07:35] VITALS: BP 105/59
[2019-03-12 09:10] VITALS: BP 106/53
[2019-03-12 09:25] VITALS: BP 102/53
[2019-03-12 09:40] VITALS: BP 107/62
== END | disposition home or self-care (01) ==
LOC: SDC 03-11 08:00
DX: K29.70 Gastritis, unspecified, without bleeding (principal); K74.60 Unspecified cirrhosis of liver; I50.9 Heart failure, unspecified; J44.9 Chronic obstructive pulmonary disease, unspecified; E11.9 Type 2 diabetes mellitus without complications; K21.9 Gastro-esophageal reflux disease without esophagitis; F41.9 Anxiety disorder, unspecified; F32.9 Major depressive disorder, single episode, unspecified; Z98.890 Other specified postprocedural states; Z79.4 Long term (current) use of insulin; Z79.899 Other long term (current) drug therapy; Z86.73 Personal history of transient ischemic attack (TIA), and cerebral infarction without residual deficits; Z85.42 Personal history of malignant neoplasm of other parts of uterus; Z83.3 Family history of diabetes mellitus

== ENCOUNTER → 2019-04-20 | Outpatient (CLI) | payer OTHER ==
[2019-04-20 10:09] LABS: BASO % 0.7 % (0.0-1.0); EOS # 0.1 10*3/uL (0.0-0.4); EOS % 1.4 % (1.0-4.0); HEMATOCRIT 38.1 % (37.0-47.0); HEMOGLOBIN 12.7 g/dl (12.0-16.0); LYMPH # 1.7 10*3/uL (1.3-4.4); LYMPH % 29.3 % (27.0-41.0); MEAN CELL VOLUME 94.8 fl (81.0-99.0); MEAN CORPUSCULAR HGB 31.6 pg (27.0-31.0); MEAN CORPUSCULAR HGB CONC 33.3 g/dl (33.0-37.0); MEAN PLATELET VOLUME 9.9 fl (9.6-12.3); MONO # 0.6 10*3/uL (0.1-1.0); MONO % 11.1 % (3.0-9.0); NEUT # 3.2 10*3/uL (2.3-7.9); NEUT % 57.1 % (47.0-73.0); PLATELET COUNT AUTOMATED 146 10*3/uL (130-400); RED BLOOD COUNT 4.02 10*6/uL (4.10-5.10); RED CELL DISTRI WIDTH 13.3 % (0-14.5); WHITE BLOOD COUNT 5.7 10*3/uL (4.8-10.8)
[2019-04-20 10:39] LABS: ALBUMIN 2.9 gm/dl (3.1-4.5); ALKALINE PHOSPHATASE 92 U/L (45-117); BUN 14 mg/dl (7-24); CHLORIDE 104 mmol/L (98-107); CREATININE 1.02 mg/dL (0.55-1.02); SGOT/AST 20 IU/L (3-35); SGPT/ALT 25 U/L (12-78); SODIUM 137 mmol/L (136-145); TOTAL PROTEIN 6.4 gm/dL (6.4-8.2)
[2019-04-20 11:58] LABS: BILIRUBIN NEGATIVE (NEGATIVE); BLOOD TRACE-LYSED (NEGATIVE); CLARITY SL CLOUDY (CLEAR); COLOR YELLOW (YELLOW); GLUCOSE NEGATIVE (NEGATIVE); KETONE NEGATIVE (NEGATIVE); LEUKO ESTERASE TRACE (NEGATIVE); NITRITE POSITIVE (NEGATIVE); UROBILINOGEN 0.2 E.U./dl (0.2-1.0)
[2019-04-20 12:11] LABS: WBC TNTC wbc/hpf (0-5)
[2019-04-20 12:12] LABS: BACTERIA 2+
== END | disposition home or self-care (01) ==
LOC: LAB 09:25 → CT 10:00
PROVIDERS: Nurse Practitioner Family
DX: K80.20 Calculus of gallbladder without cholecystitis without obstruction (principal); N39.0 Urinary tract infection, site not specified; E11.9 Type 2 diabetes mellitus without complications; R31.9 Hematuria, unspecified

== ENCOUNTER → 2019-06-01 | Outpatient (CLI) | payer OTHER ==
[2019-06-01 09:37] LABS: BASO # 0.1 10*3/uL (0.0-0.1); EOS # 0.1 10*3/uL (0.0-0.4); EOS % 1.5 % (1.0-4.0); HEMATOCRIT 39.5 % (37.0-47.0); HEMOGLOBIN 12.5 g/dl (12.0-16.0); LYMPH # 1.9 10*3/uL (1.3-4.4); LYMPH % 32.1 % (27.0-41.0); MEAN CELL VOLUME 96.8 fl (81.0-99.0); MEAN CORPUSCULAR HGB 30.6 pg (27.0-31.0); MEAN CORPUSCULAR HGB CONC 31.6 g/dl (33.0-37.0); MEAN PLATELET VOLUME 9.6 fl (9.6-12.3); MONO # 0.6 10*3/uL (0.1-1.0); MONO % 10.3 % (3.0-9.0); NEUT # 3.2 10*3/uL (2.3-7.9); NEUT % 54.8 % (47.0-73.0); PLATELET COUNT AUTOMATED 173 10*3/uL (130-400); RED BLOOD COUNT 4.08 10*6/uL (4.10-5.10); RED CELL DISTRI WIDTH 14.3 % (0-14.5); WHITE BLOOD COUNT 5.9 10*3/uL (4.8-10.8)
== END | disposition home or self-care (01) ==
LOC: LAB 09:01
PROVIDERS: Ophthalmology Retina Specialist
DX: G43.109 Migraine with aura, not intractable, without status migrainosus (principal)

== ENCOUNTER 2019-08-11 11:39 | Inpatient (IN) | payer OTHER ==
[~2019-08-11] VITALS: Ht 175.2 cm; Wt 86.2 kg
[2019-08-11 11:47] VITALS: BP 127/62
[2019-08-11 12:14] LABS: BASO # 0.1 10*3/uL (0.0-0.1); BASO % 1.1 % (0.0-1.0); EOS # 0.1 10*3/uL (0.0-0.4); EOS % 1.6 % (1.0-4.0); HEMATOCRIT 36.2 % (37.0-47.0); LYMPH # 1.9 10*3/uL (1.3-4.4); LYMPH % 33.3 % (27.0-41.0); MEAN CELL VOLUME 93.3 fl (81.0-99.0); MEAN CORPUSCULAR HGB 30.9 pg (27.0-31.0); MEAN CORPUSCULAR HGB CONC 33.1 g/dl (33.0-37.0); MEAN PLATELET VOLUME 9.1 fl (9.6-12.3); MONO # 0.7 10*3/uL (0.1-1.0); MONO % 12.1 % (3.0-9.0); NEUT % 51.7 % (47.0-73.0); PLATELET COUNT AUTOMATED 146 10*3/uL (130-400); RED BLOOD COUNT 3.88 10*6/uL (4.10-5.10); RED CELL DISTRI WIDTH 14.3 % (0-14.5); WHITE BLOOD COUNT 5.7 10*3/uL (4.8-10.8)
[2019-08-11 12:24] LABS: ACT PARTIAL THROMBO TIME 27.9 SECONDS (20.0-32.1); INTERNATIONAL NORM RATIO 1.1 (2.0-3.5)
[2019-08-11 12:32] LABS: ALBUMIN 2.8 gm/dl (3.1-4.5); ALKALINE PHOSPHATASE 93 U/L (45-117); BUN 9 mg/dl (7-24); CHLORIDE 104 mmol/L (98-107); CREATININE 0.91 mg/dL (0.55-1.02); SGOT/AST 32 IU/L (3-35); SGPT/ALT 24 U/L (12-78); SODIUM 136 mmol/L (136-145); TOTAL PROTEIN 6.6 gm/dL (6.4-8.2)
[2019-08-11 12:33] LABS: TROPONIN I < 0.015 ng/ml (<0.045)
[2019-08-11 14:36] VITALS: BP 137/53
[2019-08-11 16:00] VITALS: BP 124/62
--- NOTE | 2019-08-11 16:15 | NUR ---
A 64, admitted to , under the services of ZACK Barr DO with a diagnosis of CHEST TIGHTNESS, SOB. Chief complaint is SOB. Patient arrived via bed from ER. Monitor applied. Initial assessment completed. Vital signs taken and recorded. ZACK BARR DO notified of admission to the unit. Orders received. See assessment for past medical history, medications and allergies. Patient and/or family oriented to unit. [facility] visitation policy reviewed. Clothing/patient valuable form completed. NILTON CLAUDIO
--- NOTE | 2019-08-11 17:48 | NUR ---
16:45 PT INSTRUCTED ON USE OF FLUTTER. PT DEMONSTRATED PROPER TECHNIQUE. PT INSTRUCTED TO USE Q 1-2 HR W/A.
--- NOTE | 2019-08-11 19:48 | NUR ---
PATIENT RESTING; DENIES NEEDS. SEE SHIFT ASSESSMENT.
[2019-08-11 20:00] VITALS: BP 104/51
[2019-08-11] MEDS ORDERED: LACTULOSE10 GM/15 M PO (21:43)
[2019-08-12] VITALS: BP 102/57
--- NOTE | 2019-08-12 00:18 | NUR ---
PT SLEEPING; NO NEEDS MET. WILL CONT TO MONITOR.
[2019-08-12 06:28] LABS: BASO % 0.9 % (0.0-1.0); EOS # 0.1 10*3/uL (0.0-0.4); EOS % 1.3 % (1.0-4.0); HEMATOCRIT 35.6 % (37.0-47.0); LYMPH # 1.5 10*3/uL (1.3-4.4); LYMPH % 31.9 % (27.0-41.0); MEAN CELL VOLUME 93.2 fl (81.0-99.0); MEAN CORPUSCULAR HGB 30.4 pg (27.0-31.0); MEAN CORPUSCULAR HGB CONC 32.6 g/dl (33.0-37.0); MEAN PLATELET VOLUME 9.9 fl (9.6-12.3); MONO # 0.5 10*3/uL (0.1-1.0); MONO % 10.5 % (3.0-9.0); NEUT # 2.6 10*3/uL (2.3-7.9); NEUT % 55.2 % (47.0-73.0); PLATELET COUNT AUTOMATED 144 10*3/uL (130-400); RED BLOOD COUNT 3.82 10*6/uL (4.10-5.10); RED CELL DISTRI WIDTH 14.4 % (0-14.5); WHITE BLOOD COUNT 4.7 10*3/uL (4.8-10.8)
[2019-08-12 06:58] LABS: ALBUMIN 2.7 gm/dl (3.1-4.5); ALKALINE PHOSPHATASE 85 U/L (45-117); BUN 11 mg/dl (7-24); CHLORIDE 105 mmol/L (98-107); CHOLESTEROL 139 mg/dL (<200); CREATININE 0.75 mg/dL (0.55-1.02); FREE T4 1.33 ng/dl (0.76-1.46); HDL CHOLESTEROL 52 mg/dl (40-60); LDL CHOLESTEROL 77 mg/dL (9-159); POTASSIUM 4.3 mmol/L (3.5-5.1); SGOT/AST 24 IU/L (3-35); SGPT/ALT 20 U/L (12-78); SODIUM 139 mmol/L (136-145); TOTAL PROTEIN 6.1 gm/dL (6.4-8.2); TRIGLYCERIDES 50 mg/dl (<150); VLDL CHOLESTEROL 10 mg/dL (6-40)
[2019-08-12 07:03] LABS: THYROID STIM HORMONE (HS) 0.547 uIU/ml (0.358-4.75)
[2019-08-12 07:03] LABS: BILIRUBIN NEGATIVE (NEGATIVE); BLOOD TRACE-INTACT (NEGATIVE); CLARITY SL CLOUDY (CLEAR); COLOR YELLOW (YELLOW); GLUCOSE NEGATIVE (NEGATIVE); KETONE NEGATIVE (NEGATIVE); NITRITE NEGATIVE (NEGATIVE); PH 7.5 (5.0-9.0); UROBILINOGEN 0.2 E.U./dl (0.2-1.0)
[2019-08-12 07:04] LABS: LEUKO ESTERASE 3+ (NEGATIVE)
[2019-08-12 07:25] LABS: BACTERIA 2+; EPITHELIAL CELLS 16-20; RBC 16-20 rbc/hpf (0-2); WBC TNTC wbc/hpf (0-5)
[2019-08-12 07:59] LABS: VITAMIN D, 25-HYDROXY 73.5 ng/mL (30-100)
--- NOTE | 2019-08-12 08:36 | NUR ---
NO VOICED COMPLAINTS. STATES SHE IS FEELING BETTER TODAY. CALL LIGHT IN REACH.
--- NOTE | 2019-08-12 09:00 | NUR ---
Soap Inspector in to talk to patient. Patient states lives at home with alone. There are 20 steps in the home. Physician: jarvis de los santos Pharmacy: [facility] Home health services: none Patient's level of ADLs: INDEPENDENT Patient has working utilities: all working DME: home oxygen, portable tanks, nebulizer, she doesn't remember name of company that supplied this equipment Follow-up physician's appointment after d/c: will be made by hospitalist nurse director upon discharge Does patient want to access PORTAL?: no Discharge plan discussed with patient, she states she lives at home alone and has multiple family members helping her. she is independent in adls and ambulation, she stated she drives, she states she will return home when medically stable and denies any home needs, discussed with her [facility] and educated her on the services they provide. she declined any home services at this time, case management will follow. LESLIE BEGUM
--- NOTE | 2019-08-12 10:02 | NUR ---
MADE AWARE OF CONSULT.
[2019-08-12 12:00] VITALS: BP 109/47
--- NOTE | 2019-08-12 14:16 | NUR ---
SHIFT CHART CHECK COMPLETED.
[2019-08-12 16:00] VITALS: BP 101/50
--- NOTE | 2019-08-12 16:46 | NUR ---
REFUSED INSULIN COVERAGEFOR BSG 298. STATES SHE WANTS HER METFORMIN. INFORMED IT WAS NOT ORDERED. STILL REFUSED HUMULOG INJECTION.
--- NOTE | 2019-08-12 17:07 | NUR ---
AWARE OF BSG 298 AND REFUSING COVERAGE.
[2019-08-12 20:00] VITALS: BP 106/57
--- NOTE | 2019-08-12 21:34 | NUR ---
BEDSIDE GLUCOSE OBTAINED AND PATIENT REFUSED TO TAKE ANY INSULIN FOR ELEVATED BSG EVEN AFTER EDUCATION.
[2019-08-13] VITALS: BP 95/55
--- NOTE | 2019-08-13 03:44 | NUR ---
24 HR chart check completed.
[2019-08-13 05:59] LABS: BASO % 0.1 % (0.0-1.0); HEMATOCRIT 35.8 % (37.0-47.0); LYMPH # 0.9 10*3/uL (1.3-4.4); LYMPH % 10.5 % (27.0-41.0); MEAN CORPUSCULAR HGB 30.3 pg (27.0-31.0); MONO # 0.3 10*3/uL (0.1-1.0); MONO % 2.9 % (3.0-9.0); NEUT # 7.5 10*3/uL (2.3-7.9); NEUT % 85.6 % (47.0-73.0); PLATELET COUNT AUTOMATED 153 10*3/uL (130-400); RED BLOOD COUNT 3.89 10*6/uL (4.10-5.10); RED CELL DISTRI WIDTH 13.9 % (0-14.5); WHITE BLOOD COUNT 8.8 10*3/uL (4.8-10.8)
[2019-08-13 06:08] LABS: ALBUMIN 2.7 gm/dl (3.1-4.5); ALKALINE PHOSPHATASE 89 U/L (45-117); BUN 14 mg/dl (7-24); CHLORIDE 104 mmol/L (98-107); CREATININE 0.78 mg/dL (0.55-1.02); POTASSIUM 4.3 mmol/L (3.5-5.1); SGOT/AST 32 IU/L (3-35); SGPT/ALT 25 U/L (12-78); SODIUM 135 mmol/L (136-145); TOTAL PROTEIN 6.3 gm/dL (6.4-8.2)
--- NOTE | 2019-08-13 06:10 | NUR ---
[facility] MORNING BLOOD WORK WHICH INCLUDED GLUCOSE WHICH IS 188. PATIENT IS NPO AND IS REFUSING INSULIN. BEDSIDE GLUCOSE NOT DONE BECAUSE OF THESE REASONS.
--- NOTE | 2019-08-13 07:45 | NUR ---
SHIFT CHART CHECK COMPLETED
[2019-08-13 08:00] VITALS: BP 112/46
--- NOTE | 2019-08-13 09:00 | NUR ---
case management visits with patient, again discussed with her home services and educated her on the services they provide. she declined any home needs at this time, case management will follow
--- NOTE | 2019-08-13 10:33 | NUR ---
OFF FLOOR FOR STRESS TEST.
--- NOTE | 2019-08-13 11:00 | NUR ---
INFORMED CONSENT OBTAINED FOR LEXISCAN NUCLEAR STRESS TEST WITH DR. ASTUDILLO. RESTING EKG NSR WITH A RESTING HR OF 63 WITH BP OF 112/58. LUNGS SCATTERED RHONCHI WITH SPO2 OF 95% ON ROOM AIR. PT COMPLETED A 1:00 LEXISCAN PROTOCOL RECEIVING LEXISCAN 0.4 MG IV OVER 10 SECONDS. HAD NO CHEST PAIN OR ANY EKG CHANGES. DID C/O "WEIRD FEELING" AND HEADACHE THAT RESOLVED IN RECOVERY. HAD A PEAK HR OF 88 WITH BP OF 110/50. LAST RECOVERY HR OF 76 WITH BP OF 108/48. AWAITING SCANNING IN STABLE CONDITION.
--- NOTE | 2019-08-13 11:41 | NUR ---
PT OFF FLOOR, UNABLE TO DO BSG.
[2019-08-13 12:00] VITALS: BP 105/67
--- NOTE | 2019-08-13 12:55 | NUR ---
BACK TO ROOM FOLLOWING STRESS TEST.
[2019-08-13] MEDS ORDERED: DOXYCYCLINE100 MG PO (14:22)
[2019-08-13] MEDS ORDERED: PREDNISONE10 MG PO (14:22)
--- NOTE | 2019-08-13 15:22 | NUR ---
Discharge instructions reviewed with patient/family. Patient receptive and verbalizes understanding. Follow-up care arranged. Written instructions given to patient/family. MACEY HUNT
== END 2019-08-13 15:22 | disposition home or self-care (01) | DRG 139 ==
LOC: ED 11:39 → 4E 13:23 → EDHOLD 13:23 → 4E 13:23
PROVIDERS: Emergency Medicine; Registered Nurse; ADMIT Family Medicine
PROC: 4A02XM4 Measurement of Cardiac Total Activity, External Approach (ICD-10-PCS; principal; 2019-08-13)
PROC: 3E073KZ Introduction of Other Diagnostic Substance into Coronary Artery, Percutaneous Approach (ICD-10-PCS; 2019-08-13)
DX: J18.9 Pneumonia, unspecified organism (principal); M94.0 Chondrocostal junction syndrome [Tietze]; J44.1 Chronic obstructive pulmonary disease with (acute) exacerbation; J44.0 Chronic obstructive pulmonary disease with (acute) lower respiratory infection; E43 Unspecified severe protein-calorie malnutrition; K74.60 Unspecified cirrhosis of liver; E11.65 Type 2 diabetes mellitus with hyperglycemia; E78.00 Pure hypercholesterolemia, unspecified; K21.9 Gastro-esophageal reflux disease without esophagitis; F32.9 Major depressive disorder, single episode, unspecified; E03.9 Hypothyroidism, unspecified; G47.33 Obstructive sleep apnea (adult) (pediatric); J96.11 Chronic respiratory failure with hypoxia; J20.9 Acute bronchitis, unspecified; I11.0 Hypertensive heart disease with heart failure; I50.9 Heart failure, unspecified; Z99.81 Dependence on supplemental oxygen; Z68.28 Body mass index [BMI] 28.0-28.9, adult; Z88.8 Allergy status to other drugs, medicaments and biological substances; Z79.84 Long term (current) use of oral hypoglycemic drugs; Z79.899 Other long term (current) drug therapy; Z90.710 Acquired absence of both cervix and uterus; Z85.41 Personal history of malignant neoplasm of cervix uteri; Z80.41 Family history of malignant neoplasm of ovary; Z80.8 Family history of malignant neoplasm of other organs or systems; Z71.6 Tobacco abuse counseling; Z72.0 Tobacco use

== ENCOUNTER → 2019-09-16 | Outpatient (CLI) | payer OTHER ==
[~2019-09-16] MED LIST changes: +DOXYCYCLINE100 MG PO; +LACTULOSE10 GM/15 M PO
[2019-09-16 10:06] LABS: BASO # 0.1 10*3/uL (0.0-0.1); BASO % 0.9 % (0.0-1.0); EOS # 0.1 10*3/uL (0.0-0.4); EOS % 0.9 % (1.0-4.0); HEMATOCRIT 37.9 % (37.0-47.0); LYMPH # 1.8 10*3/uL (1.3-4.4); LYMPH % 31.1 % (27.0-41.0); MEAN CELL VOLUME 90.2 fl (81.0-99.0); MEAN CORPUSCULAR HGB 29.5 pg (27.0-31.0); MEAN CORPUSCULAR HGB CONC 32.7 g/dl (33.0-37.0); MEAN PLATELET VOLUME 9.7 fl (9.6-12.3); MONO % 16.6 % (3.0-9.0); NEUT # 2.9 10*3/uL (2.3-7.9); NEUT % 50.2 % (47.0-73.0); PLATELET COUNT AUTOMATED 179 10*3/uL (130-400); RED CELL DISTRI WIDTH 14.1 % (0-14.5); WHITE BLOOD COUNT 5.8 10*3/uL (4.8-10.8)
[2019-09-16 10:26] LABS: ALBUMIN 2.8 gm/dl (3.1-4.5); BUN 10 mg/dl (7-24); CHLORIDE 102 mmol/L (98-107); CREATININE 0.87 mg/dL (0.55-1.02); SGOT/AST 26 IU/L (3-35); SGPT/ALT 26 U/L (12-78); SODIUM 133 mmol/L (136-145); TOTAL PROTEIN 6.7 gm/dL (6.4-8.2)
[2019-09-16 10:27] LABS: ALKALINE PHOSPHATASE 96 U/L (45-117)
[2019-09-16 16:26] LABS: BILIRUBIN NEGATIVE (NEGATIVE); BLOOD 2+ (NEGATIVE); CLARITY TURBID (CLEAR); COLOR YELLOW (YELLOW); GLUCOSE NEGATIVE (NEGATIVE); KETONE NEGATIVE (NEGATIVE); LEUKO ESTERASE 2+ (NEGATIVE); NITRITE NEGATIVE (NEGATIVE); SPECIFIC GRAVITY 1.025 (1.005-1.030); UROBILINOGEN 0.2 E.U./dl (0.2-1.0)
[2019-09-16 16:27] LABS: WBC TNTC wbc/hpf (0-5)
[2019-09-16 16:28] LABS: BACTERIA 4+; CALCIUM OXALATE CRYSTALS 21-30
== END | disposition home or self-care (01) ==
LOC: LAB 09:37
PROVIDERS: Nurse Practitioner Family; Physician Assistant
DX: J43.9 Emphysema, unspecified (principal); F32.9 Major depressive disorder, single episode, unspecified; R31.9 Hematuria, unspecified

== ENCOUNTER → 2019-10-20 | Outpatient (CLI) | payer OTHER ==
[2019-10-20 11:08] LABS: BASO % 0.6 % (0.0-1.0); EOS # 0.1 10*3/uL (0.0-0.4); EOS % 1.2 % (1.0-4.0); HEMATOCRIT 36.1 % (37.0-47.0); LYMPH # 1.3 10*3/uL (1.3-4.4); LYMPH % 27.8 % (27.0-41.0); MEAN CELL VOLUME 91.9 fl (81.0-99.0); MEAN CORPUSCULAR HGB 28.5 pg (27.0-31.0); MEAN PLATELET VOLUME 10.1 fl (9.6-12.3); MONO # 0.5 10*3/uL (0.1-1.0); MONO % 10.6 % (3.0-9.0); NEUT # 2.9 10*3/uL (2.3-7.9); NEUT % 59.6 % (47.0-73.0); PLATELET COUNT AUTOMATED 168 10*3/uL (130-400); RED BLOOD COUNT 3.93 10*6/uL (4.10-5.10); RED CELL DISTRI WIDTH 14.9 % (0-14.5); WHITE BLOOD COUNT 4.8 10*3/uL (4.8-10.8)
[2019-10-20 11:34] LABS: ALBUMIN 2.9 gm/dl (3.1-4.5); BUN 11 mg/dl (7-24); CHLORIDE 106 mmol/L (98-107); POTASSIUM 3.9 mmol/L (3.5-5.1); SGOT/AST 28 IU/L (3-35); SGPT/ALT 27 U/L (12-78); SODIUM 136 mmol/L (136-145)
[2019-10-20 11:36] LABS: ALKALINE PHOSPHATASE 78 U/L (45-117); TOTAL PROTEIN 6.4 gm/dL (6.4-8.2)
[2019-10-20 12:10] LABS: INTERNATIONAL NORM RATIO 1.1 (2.0-3.5)
== END | disposition home or self-care (01) ==
LOC: LAB 10:03
PROVIDERS: Internal Medicine Gastroenterology
DX: K74.60 Unspecified cirrhosis of liver (principal)

== ENCOUNTER → 2019-10-26 | Outpatient (CLI) | payer OTHER | END | disposition home or self-care (01) | LOC: US 07:17 | DX: K74.60 Unspecified cirrhosis of liver (principal); K80.20 Calculus of gallbladder without cholecystitis without obstruction ==

== ENCOUNTER → 2019-12-16 | Outpatient (CLI) | payer OTHER ==
[2019-12-16 11:27] LABS: BASO % 0.5 % (0.0-1.0); EOS % 0.7 % (1.0-4.0); HEMATOCRIT 36.5 % (37.0-47.0); LYMPH # 1.6 10*3/uL (1.3-4.4); LYMPH % 28.8 % (27.0-41.0); MEAN CORPUSCULAR HGB 27.5 pg (27.0-31.0); MEAN CORPUSCULAR HGB CONC 31.2 g/dl (33.0-37.0); MEAN PLATELET VOLUME 9.5 fl (9.6-12.3); MONO # 0.6 10*3/uL (0.1-1.0); MONO % 10.9 % (3.0-9.0); NEUT # 3.2 10*3/uL (2.3-7.9); NEUT % 58.9 % (47.0-73.0); PLATELET COUNT AUTOMATED 177 10*3/uL (130-400); RED BLOOD COUNT 4.15 10*6/uL (4.10-5.10); RED CELL DISTRI WIDTH 16.2 % (0-14.5); WHITE BLOOD COUNT 5.5 10*3/uL (4.8-10.8)
[2019-12-16 11:34] LABS: ALKALINE PHOSPHATASE 88 U/L (45-117); BUN 8 mg/dl (7-24); CHLORIDE 107 mmol/L (98-107); CREATININE 0.84 mg/dL (0.55-1.02); POTASSIUM 4.6 mmol/L (3.5-5.1); SGOT/AST 28 IU/L (3-35); SGPT/ALT 23 U/L (12-78); SODIUM 135 mmol/L (136-145); TOTAL PROTEIN 6.5 gm/dL (6.4-8.2)
[2019-12-16 13:11] LABS: BILIRUBIN NEGATIVE; BLOOD 1+ (NEGATIVE); CLARITY TURBID (CLEAR); COLOR YELLOW (YELLOW); GLUCOSE NEGATIVE; KETONE NEGATIVE; LEUKO ESTERASE 3+ (NEGATIVE); NITRITE POSITIVE (NEGATIVE)
[2019-12-16 13:12] LABS: BACTERIA 4+; WBC 51-100 wbc/hpf (0-5)
[2019-12-20 16:08] LABS: CREATININE, RANDOM URINE 61.7 mg/dL (Not Estab.)
[2019-12-22 01:07] LABS: METANEPHRINE, PLASMA 41.1 pg/mL (0.0-88.0)
[2019-12-22 07:27] LABS: NORMETANEPHRINE, PLASMA 121.2 pg/mL (0.0-191.8)
[2019-12-22 08:12] LABS: METANEPH-CREAT RATIO 0.5 (0.0-1.0)
== END | disposition home or self-care (01) ==
LOC: LAB 10:23 → CT 11:00
PROVIDERS: ATTEND Urology
DX: N20.0 Calculus of kidney (principal); N39.0 Urinary tract infection, site not specified; E27.8 Other specified disorders of adrenal gland; K74.60 Unspecified cirrhosis of liver; K80.20 Calculus of gallbladder without cholecystitis without obstruction; K57.30 Diverticulosis of large intestine without perforation or abscess without bleeding; I70.0 Atherosclerosis of aorta; M47.816 Spondylosis without myelopathy or radiculopathy, lumbar region; M47.814 Spondylosis without myelopathy or radiculopathy, thoracic region; Z90.710 Acquired absence of both cervix and uterus

== ENCOUNTER → 2019-12-17 | Outpatient (CLI) | payer OTHER | END | disposition home or self-care (01) | LOC: LAB 11:47 | PROVIDERS: ATTEND Urology | DX: N39.0 Urinary tract infection, site not specified (principal); E27.9 Disorder of adrenal gland, unspecified ==

== ENCOUNTER → 2020-01-31 | Outpatient (CLI) | payer OTHER | END | disposition home or self-care (01) | LOC: US 14:10 | PROVIDERS: ATTEND Urology | DX: N20.0 Calculus of kidney (principal); N28.89 Other specified disorders of kidney and ureter ==

== ENCOUNTER → 2020-02-28 | Outpatient (CLI) | payer OTHER | END | disposition home or self-care (01) | LOC: COVID19 13:30 | PROVIDERS: ATTEND Physician Assistant | DX: Z20.828 Contact with and (suspected) exposure to other viral communicable diseases (principal) ==

== ENCOUNTER → 2020-03-15 | Outpatient (CLI) | payer OTHER | END | disposition home or self-care (01) | LOC: CT 09:28 → MAMMO 11:00 | PROVIDERS: ATTEND Physician Assistant | DX: Z12.31 Encounter for screening mammogram for malignant neoplasm of breast (principal); N20.0 Calculus of kidney; K74.60 Unspecified cirrhosis of liver; K80.20 Calculus of gallbladder without cholecystitis without obstruction; K57.30 Diverticulosis of large intestine without perforation or abscess without bleeding; Z98.82 Breast implant status ==

== ENCOUNTER 2020-04-24 12:12 | Emergency (ER) | payer OTHER ==
[~2020-04-24] VITALS: Ht 172.7 cm; Wt 84.8 kg
[2020-04-24 12:37] LABS: BASO # 0.1 10*3/uL (0.0-0.1); BASO % 0.8 % (0.0-1.0); EOS # 0.2 10*3/uL (0.0-0.4); EOS % 2.1 % (1.0-4.0); HEMATOCRIT 34.9 % (37.0-47.0); LYMPH % 26.3 % (27.0-41.0); MEAN CELL VOLUME 83.3 fl (81.0-99.0); MEAN CORPUSCULAR HGB 26.3 pg (27.0-31.0); MEAN CORPUSCULAR HGB CONC 31.5 g/dl (33.0-37.0); MEAN PLATELET VOLUME 10.5 fl (9.6-12.3); MONO # 1.3 10*3/uL (0.1-1.0); MONO % 17.5 % (3.0-9.0); PLATELET COUNT AUTOMATED 191 10*3/uL (130-400); RED BLOOD COUNT 4.19 10*6/uL (4.10-5.10); RED CELL DISTRI WIDTH 18.6 % (0-14.5); WHITE BLOOD COUNT 7.6 10*3/uL (4.8-10.8)
[2020-04-24 12:49] LABS: ACT PARTIAL THROMBO TIME 26.2 SECONDS (20.0-32.1)
[2020-04-24 12:54] LABS: ALBUMIN 2.8 gm/dl (3.1-4.5); ALKALINE PHOSPHATASE 104 U/L (45-117); BUN 8 mg/dl (7-24); CHLORIDE 99 mmol/L (98-107); CREATININE 0.84 mg/dL (0.55-1.02); POTASSIUM 3.9 mmol/L (3.5-5.1); SGOT/AST 22 IU/L (3-35); SGPT/ALT 25 U/L (12-78); SODIUM 132 mmol/L (136-145); TOTAL PROTEIN 6.7 gm/dL (6.4-8.2)
[2020-04-24 13:00] LABS: TROPONIN I < 0.015 ng/ml (<0.045)
[2020-04-24 22:40] VITALS: BP 108/33
== END 2020-04-24 23:24 | disposition short-term general hospital (02) ==
LOC: ED 12:12
PROVIDERS: Emergency Medicine
DX: J18.9 Pneumonia, unspecified organism (principal); R79.1 Abnormal coagulation profile; Z20.828 Contact with and (suspected) exposure to other viral communicable diseases; Z88.8 Allergy status to other drugs, medicaments and biological substances; Z88.2 Allergy status to sulfonamides; Z79.899 Other long term (current) drug therapy; Z87.891 Personal history of nicotine dependence

== ENCOUNTER → 2020-06-15 | Outpatient (CLI) | payer OTHER | END | disposition home or self-care (01) | LOC: RAD 13:25 | PROVIDERS: ATTEND Nurse Practitioner Women's Health | DX: Z01.419 Encounter for gynecological examination (general) (routine) without abnormal findings (principal); Z78.0 Asymptomatic menopausal state ==

== ENCOUNTER → 2020-06-16 | Outpatient (CLI) | payer OTHER | END | disposition home or self-care (01) | LOC: COVID19 09:07 | PROVIDERS: ATTEND Internal Medicine Gastroenterology | DX: Z01.818 Encounter for other preprocedural examination (principal); Z20.822 Contact with and (suspected) exposure to COVID-19 ==

== ENCOUNTER → 2020-07-31 | Outpatient (CLI) | payer OTHER ==
[2020-07-31 10:19] LABS: HEMATOCRIT 34.2 % (37.0-47.0); MEAN CORPUSCULAR HGB 27.5 pg (27.0-31.0); MEAN CORPUSCULAR HGB CONC 31.6 g/dl (33.0-37.0); MEAN PLATELET VOLUME 9.5 fl (9.6-12.3); RED BLOOD COUNT 3.93 10*6/uL (4.10-5.10); WHITE BLOOD COUNT 5.1 10*3/uL (4.8-10.8)
[2020-07-31 10:34] LABS: BILIRUBIN, DIRECT 0.3 mg/dL (0.0-0.2); TOTAL PROTEIN 6.4 gm/dL (6.4-8.2)
== END | disposition home or self-care (01) ==
LOC: LAB 09:45
PROVIDERS: ATTEND Nurse Practitioner Family
DX: K74.60 Unspecified cirrhosis of liver (principal); D50.9 Iron deficiency anemia, unspecified

== ENCOUNTER → 2020-09-04 | Outpatient (CLI) | payer OTHER | END | disposition home or self-care (01) | LOC: ORTHO 00:27 | PROVIDERS: ATTEND Orthopaedic Surgery | DX: M17.0 Bilateral primary osteoarthritis of knee (principal); M25.861 Other specified joint disorders, right knee; M25.762 Osteophyte, left knee; M25.761 Osteophyte, right knee ==

== ENCOUNTER → 2020-11-03 | Outpatient (CLI) | payer OTHER ==
[2020-11-04 05:06] LABS: HEPATITIS B SURFACE AG Negative (Negative)
[2020-11-04 21:06] LABS: HEPATITIS C QUANTITATION HCV Not Detected IU/mL (.)
== END | disposition home or self-care (01) ==
LOC: LAB 10:11
PROVIDERS: ATTEND Nurse Practitioner Family
DX: Z01.812 Encounter for preprocedural laboratory examination (principal); Z11.59 Encounter for screening for other viral diseases; K74.60 Unspecified cirrhosis of liver; Z20.822 Contact with and (suspected) exposure to COVID-19

== ENCOUNTER → 2021-01-30 | Outpatient (CLI) | payer OTHER | END | disposition home or self-care (01) | LOC: RAD 10:20 | PROVIDERS: ATTEND Urology | DX: N20.0 Calculus of kidney (principal) ==

== ENCOUNTER 2021-02-15 15:06 | Emergency (ER) | payer OTHER ==
[~2021-02-15] VITALS: Ht 175.3 cm; Wt 79.4 kg
[2021-02-15 15:15] VITALS: BP 113/41
[2021-02-24] MEDS ORDERED: FERROUS SULFAT324 M2 PO (20:34)
[2021-02-24] MEDS ORDERED: CITALOPRAM20 MG PO (20:34)
[2021-02-24] MEDS ORDERED: LASIX40 MG PO (20:35)
[2021-02-24] MEDS ORDERED: NATURE'S BLEND F1 MG PO (20:35)
[2021-02-24] MEDS ORDERED: METFORMIN HYDR500 MG PO (20:36)
[2021-02-24] MEDS ORDERED: LEVOTHYROXINE100 MC2 PO (20:36)
[2021-02-24] MEDS ORDERED: OMEPRAZOLE20 M2 PO ×2 (20:37→20:45)
[2021-02-24] MEDS ORDERED: OXYBUTYNIN5 MG PO ×2 (20:37→20:46)
[2021-02-24] MEDS ORDERED: PROPRANOLOL HCL40 M1 PO (20:38)
[2021-02-24] MEDS ORDERED: ALDACTONE50 M1 PO (20:42)
[2021-02-24] MEDS ORDERED: LIPITOR40 MG PO (20:43)
[2021-02-24] MEDS ORDERED: VITAMIN D3125 MC1 PO (20:43)
[2021-02-24] MEDS ORDERED: PROPRANOLOL HYD10 MG PO (20:47)
== END 2021-02-15 18:18 | disposition home or self-care (01) ==
LOC: ED 15:06
DX: S80.12XA Contusion of left lower leg, initial encounter (principal); S00.83XA Contusion of other part of head, initial encounter; S80.212A Abrasion, left knee, initial encounter; F17.200 Nicotine dependence, unspecified, uncomplicated; Z88.8 Allergy status to other drugs, medicaments and biological substances; Z79.899 Other long term (current) drug therapy; W18.39XA Other fall on same level, initial encounter; Y93.89 Activity, other specified; Y92.89 Other specified places as the place of occurrence of the external cause; Y99.8 Other external cause status

== ENCOUNTER → 2021-04-26 | Outpatient (CLI) | payer OTHER ==
[~2021-04-26] MED LIST changes: +CITALOPRAM20 MG PO; +FERROUS SULFAT324 M2 PO; +LASIX40 MG PO; +LEVOTHYROXINE100 MC2 PO; +LIPITOR40 MG PO; +MAGNESIUM OXID400 MG PO; +METFORMIN HYDR500 MG PO; +OMEPRAZOLE20 M2 PO; +OMNICEF300 MG PO; +OXYBUTYNIN ER15 MG PO; +OXYBUTYNIN5 MG PO; +PROAIR HFA8.5 GM INH; +PROPRANOLOL HCL40 M1 PO; +PROPRANOLOL HYD10 MG PO; +SPIRIVA RESPIMAT4 GM INH; +VITAMIN D3125 MC1 PO; +ZITHROMAX250 MG PO
== END | disposition home or self-care (01) ==
LOC: CT 04-17 11:00
PROVIDERS: ATTEND Internal Medicine Critical Care Medicine
DX: J43.9 Emphysema, unspecified (principal); K74.60 Unspecified cirrhosis of liver; N20.0 Calculus of kidney; J18.1 Lobar pneumonia, unspecified organism; R91.1 Solitary pulmonary nodule

== ENCOUNTER → 2021-05-07 | Day surgery (SDC) | payer OTHER ==
[~2021-05-07] VITALS: Ht 175.2 cm; Wt 81.6 kg
[2021-05-07 10:15] VITALS: BP 146/65
[2021-05-07 11:48] VITALS: BP 133/67
[2021-05-07 12:03] VITALS: BP 96/54
[2021-05-07 12:18] VITALS: BP 102/56
[2021-05-07 14:26] LABS: BF LYMPHOCYTES 4 %; BF MACROPHAGES 6 %; BF NEUTROPHILS 90 %
[2021-05-08 09:07] LABS: ACID FAST SPEC PROCESSING Concentration (.)
[2021-05-08 09:07] LABS: ACID FAST SPEC PROCESSING Concentration (.)
== END | disposition home or self-care (01) ==
LOC: SDC 05-04 10:15
PROVIDERS: ATTEND Internal Medicine Critical Care Medicine
DX: R91.8 Other nonspecific abnormal finding of lung field (principal); J44.9 Chronic obstructive pulmonary disease, unspecified; G47.33 Obstructive sleep apnea (adult) (pediatric); G25.81 Restless legs syndrome; Z87.891 Personal history of nicotine dependence; F41.9 Anxiety disorder, unspecified; F32.9 Major depressive disorder, single episode, unspecified; I50.9 Heart failure, unspecified; K21.9 Gastro-esophageal reflux disease without esophagitis; E11.9 Type 2 diabetes mellitus without complications; Z86.73 Personal history of transient ischemic attack (TIA), and cerebral infarction without residual deficits

== ENCOUNTER 2021-05-14 13:43 | Emergency (ER) | payer OTHER ==
[2021-05-14 13:57] VITALS: BP 120/52
[2021-05-16] MEDS ORDERED: MYRBETRIQ50 M1 PO (11:21)
[2021-05-16] MEDS ORDERED: CEFEPIME HYDROCH2 GM IV (12:44)
== END 2021-05-14 18:35 | disposition left against medical advice (07) ==
LOC: ED 13:43
DX: Z53.21 Procedure and treatment not carried out due to patient leaving prior to being seen by health care provider (principal)

== ENCOUNTER 2021-07-29 15:29 | Inpatient (IN) | payer OTHER ==
[2021-07-29] VITALS (7 sets, daily range): BP systolic 117–129; BP diastolic 33–57
[~2021-07-29] VITALS: Ht 175.3 cm; Wt 78.0 kg
[~2021-07-29 15:29] MED LIST changes: +CEFEPIME HYDROCH2 GM IV; +MYRBETRIQ50 M1 PO
[2021-07-29 16:01] LABS: HEMATOCRIT 30.3 % (37.0-47.0); MEAN CELL VOLUME 96.8 fl (81.0-99.0); MEAN CORPUSCULAR HGB 33.5 pg (27.0-31.0); MEAN CORPUSCULAR HGB CONC 34.7 g/dl (33.0-37.0); PLATELET COUNT AUTOMATED 168 10*3/uL (130-400); RED BLOOD COUNT 3.13 10*6/uL (4.10-5.10); RED CELL DISTRI WIDTH 13.5 % (0-14.5); WHITE BLOOD COUNT 16.4 10*3/uL (4.8-10.8)
[2021-07-29 16:05] LABS: ABG BASE EXCESS -3.2 mmol/L (-2.0-2.0); ARTERIAL BLOOD GAS PH 7.478 (7.35-7.45); ARTERIAL BLOOD GAS PO2 74.6 (80-90)
[2021-07-29 16:16] LABS: ALKALINE PHOSPHATASE 166 U/L (45-117); BUN 26 mg/dl (7-24); CHLORIDE 105 mmol/L (98-107); CREATININE 1.38 mg/dL (0.55-1.02); POTASSIUM 4.4 mmol/L (3.5-5.1); SGOT/AST 40 IU/L (3-35); SGPT/ALT 40 U/L (12-78); SODIUM 135 mmol/L (136-145); TOTAL PROTEIN 6.5 gm/dL (6.4-8.2)
[2021-07-29 16:21] LABS: MANUAL DIFF REFLEX YES
[2021-07-29 16:25] LABS: TOTAL CELLS COUNTED 100 #CELLS
[2021-07-29 16:26] LABS: PLATELET SUFFICIENCY NORMAL (NORMAL)
[2021-07-29 16:28] LABS: ETHYL ALCOHOL < 3.0 mg/dl (<3)
[2021-07-29 16:33] LABS: ACT PARTIAL THROMBO TIME 29.5 SECONDS (20.0-32.1); INTERNATIONAL NORM RATIO 1.2 (2.0-3.5)
[2021-07-29 17:26] LABS: BILIRUBIN Negative (Negative); BLOOD 2+ (Negative); CLARITY Turbid (Clear); COLOR Yellow (Yellow); GLUCOSE Negative (Negative); KETONE Negative (Negative); LEUKO ESTERASE 3+ (Negative); NITRITE Negative (Negative); PH 5.5 (4.5-8.0)
[2021-07-29 17:34] LABS: URINE AMPHETAMINES < 1000 (1000ng/ml); URINE BARBITURATES < 200 (200ng/ml); URINE BENZODIAZEPINES < 200 (200ng/ml); URINE CANNABINOIDS (THC) < 50 (50ng/ml); URINE COCAINE < 300 (300ng/ml); URINE METHADONE < 300 (300ng/ml); URINE OPIATES < 300 (300ng/ml); URINE PHENCYCLIDINE < 25 (25ng/ml)
[2021-07-29 17:36] LABS: BACTERIA 4+
[2021-07-29 17:37] LABS: WBC TNTC wbc/hpf (0-5)
[2021-07-29] MEDS ORDERED: POTASSIUM CHLO10 ME5 PO (21:31)
[2021-07-29] MEDS ORDERED: DICLOFENAC SOD75 MG PO (21:32)
[2021-07-30] VITALS: BP 111/53
[2021-07-30 06:16] LABS: ACT PARTIAL THROMBO TIME 31.4 SECONDS (20.0-32.1); INTERNATIONAL NORM RATIO 1.2 (2.0-3.5)
[2021-07-30 06:29] LABS: CREATININE 1.37 mg/dL (0.55-1.02); POTASSIUM 4.6 mmol/L (3.5-5.1)
[2021-07-30 06:31] LABS: BASO % 0.1 % (0.0-1.0); HEMATOCRIT 28.4 % (37.0-47.0); LYMPH # 0.7 10*3/uL (1.3-4.4); LYMPH % 7.3 % (27.0-41.0); MEAN CELL VOLUME 97.9 fl (81.0-99.0); MEAN CORPUSCULAR HGB 33.1 pg (27.0-31.0); MEAN CORPUSCULAR HGB CONC 33.8 g/dl (33.0-37.0); MEAN PLATELET VOLUME 10.1 fl (9.6-12.3); MONO # 0.2 10*3/uL (0.1-1.0); MONO % 2.2 % (3.0-9.0); NEUT % 89.4 % (47.0-73.0); PLATELET COUNT AUTOMATED 150 10*3/uL (130-400); RED CELL DISTRI WIDTH 13.3 % (0-14.5); WHITE BLOOD COUNT 8.9 10*3/uL (4.8-10.8)
[2021-07-30 06:34] LABS: FREE T4 1.04 ng/dl (0.76-1.46); TOTAL PROTEIN 5.9 gm/dL (6.4-8.2)
[2021-07-30 06:51] LABS: THYROID STIM HORMONE (HS) 0.236 uIU/ml (0.358-4.75)
[2021-07-30 07:40] LABS: VITAMIN D, 25-HYDROXY 75.9 ng/mL (30-100)
[2021-07-30 08:00] VITALS: BP 91/78
[2021-07-30 12:00] VITALS: BP 91/46
[2021-07-30 16:00] VITALS: BP 106/67
[2021-07-30 20:00] VITALS: BP 80/45; BP 84/50
[2021-07-31] VITALS: BP 103/46
[2021-07-31] MEDS ORDERED: CITALOPRAM40 MG PO (03:00)
[2021-07-31 06:13] LABS: BASO % 0.1 % (0.0-1.0); HEMATOCRIT 28.3 % (37.0-47.0); LYMPH # 0.9 10*3/uL (1.3-4.4); LYMPH % 6.5 % (27.0-41.0); MEAN CELL VOLUME 96.3 fl (81.0-99.0); MEAN CORPUSCULAR HGB 32.3 pg (27.0-31.0); MEAN CORPUSCULAR HGB CONC 33.6 g/dl (33.0-37.0); MEAN PLATELET VOLUME 10.4 fl (9.6-12.3); MONO # 0.4 10*3/uL (0.1-1.0); MONO % 3.4 % (3.0-9.0); NEUT # 11.6 10*3/uL (2.3-7.9); NEUT % 88.8 % (47.0-73.0); PLATELET COUNT AUTOMATED 165 10*3/uL (130-400); RED BLOOD COUNT 2.94 10*6/uL (4.10-5.10); RED CELL DISTRI WIDTH 13.2 % (0-14.5); WHITE BLOOD COUNT 13.1 10*3/uL (4.8-10.8)
[2021-07-31 06:18] LABS: CREATININE 1.48 mg/dL (0.55-1.02)
[2021-07-31 08:00] VITALS: BP 132/67
[2021-07-31 12:00] VITALS: BP 127/56
[2021-07-31] MEDS ORDERED: ERTAPENEM1 GM IV (15:28)
[2021-07-31 16:00] VITALS: BP 111/63
[2021-07-31 20:00] VITALS: BP 107/47
[2021-08-01] VITALS: BP 120/52
[2021-08-01 06:33] LABS: BASO % 0.2 % (0.0-1.0); HEMATOCRIT 29.5 % (37.0-47.0); LYMPH # 0.7 10*3/uL (1.3-4.4); LYMPH % 5.9 % (27.0-41.0); MEAN CELL VOLUME 96.4 fl (81.0-99.0); MEAN CORPUSCULAR HGB 33.3 pg (27.0-31.0); MEAN CORPUSCULAR HGB CONC 34.6 g/dl (33.0-37.0); MEAN PLATELET VOLUME 10.2 fl (9.6-12.3); MONO # 0.5 10*3/uL (0.1-1.0); MONO % 4.1 % (3.0-9.0); NEUT # 10.8 10*3/uL (2.3-7.9); NEUT % 88.9 % (47.0-73.0); PLATELET COUNT AUTOMATED 197 10*3/uL (130-400); RED BLOOD COUNT 3.06 10*6/uL (4.10-5.10); RED CELL DISTRI WIDTH 13.2 % (0-14.5); WHITE BLOOD COUNT 12.1 10*3/uL (4.8-10.8)
[2021-08-01 07:02] LABS: CREATININE 1.41 mg/dL (0.55-1.02); POTASSIUM 4.9 mmol/L (3.5-5.1)
[2021-08-01 08:00] VITALS: BP 136/64
[2021-08-01 12:00] VITALS: BP 128/58
[2021-08-01 16:00] VITALS: BP 108/91
== END 2021-08-01 16:53 | disposition left against medical advice (07) | DRG 720 ==
LOC: ED 15:29 → EDHOLD 17:44 → 5E 17:44 → EDHOLD 18:17 → 5E 18:19
PROVIDERS: Emergency Medicine; Family Medicine; Internal Medicine; ADMIT Internal Medicine; ATTEND Internal Medicine
PROC: 02HV33Z Insertion of Infusion Device into Superior Vena Cava, Percutaneous Approach (ICD-10-PCS; principal; 2021-08-01)
PROC: B548ZZA Ultrasonography of Superior Vena Cava, Guidance (ICD-10-PCS; 2021-08-01)
DX: A41.9 Sepsis, unspecified organism (principal); G93.41 Metabolic encephalopathy; N17.0 Acute kidney failure with tubular necrosis; E87.1 Hypo-osmolality and hyponatremia; J18.9 Pneumonia, unspecified organism; J96.11 Chronic respiratory failure with hypoxia; E87.3 Alkalosis; K70.31 Alcoholic cirrhosis of liver with ascites; K71.7 Toxic liver disease with fibrosis and cirrhosis of liver; C53.9 Malignant neoplasm of cervix uteri, unspecified; J44.1 Chronic obstructive pulmonary disease with (acute) exacerbation; E43 Unspecified severe protein-calorie malnutrition; N39.0 Urinary tract infection, site not specified; Z53.29 Procedure and treatment not carried out because of patient's decision for other reasons; J44.0 Chronic obstructive pulmonary disease with (acute) lower respiratory infection; E11.65 Type 2 diabetes mellitus with hyperglycemia; E78.00 Pure hypercholesterolemia, unspecified; K21.9 Gastro-esophageal reflux disease without esophagitis; E03.9 Hypothyroidism, unspecified; G47.33 Obstructive sleep apnea (adult) (pediatric); F17.200 Nicotine dependence, unspecified, uncomplicated; E53.8 Deficiency of other specified B group vitamins; N18.32 Chronic kidney disease, stage 3b; R65.20 Severe sepsis without septic shock; D64.9 Anemia, unspecified; Z99.81 Dependence on supplemental oxygen; Z90.710 Acquired absence of both cervix and uterus; Z80.41 Family history of malignant neoplasm of ovary; Z88.1 Allergy status to other antibiotic agents; Z88.2 Allergy status to sulfonamides; Z88.8 Allergy status to other drugs, medicaments and biological substances; Z79.51 Long term (current) use of inhaled steroids; Z79.899 Other long term (current) drug therapy

== ENCOUNTER → 2021-09-27 | Outpatient (CLI) | payer OTHER ==
[~2021-09-27] MED LIST changes: +CITALOPRAM40 MG PO; +DICLOFENAC SOD75 MG PO; +ERTAPENEM1 GM IV
== END | disposition home or self-care (01) ==
LOC: RAD/SH 01:12
PROVIDERS: ATTEND Physician Assistant
DX: G93.41 Metabolic encephalopathy (principal)

== ENCOUNTER 2021-11-29 09:48 | Emergency (ER) | payer OTHER ==
[2021-11-29 09:54] VITALS: BP 123/59
== END 2021-11-29 11:31 | disposition home or self-care (01) ==
LOC: ED 09:48
DX: R05.9 Cough, unspecified (principal); Z20.822 Contact with and (suspected) exposure to COVID-19; J44.9 Chronic obstructive pulmonary disease, unspecified; K21.9 Gastro-esophageal reflux disease without esophagitis; F32.A Depression, unspecified; E78.00 Pure hypercholesterolemia, unspecified; E03.9 Hypothyroidism, unspecified; G43.909 Migraine, unspecified, not intractable, without status migrainosus; E43 Unspecified severe protein-calorie malnutrition; E11.22 Type 2 diabetes mellitus with diabetic chronic kidney disease; N18.9 Chronic kidney disease, unspecified; F17.210 Nicotine dependence, cigarettes, uncomplicated; Z88.8 Allergy status to other drugs, medicaments and biological substances; Z88.1 Allergy status to other antibiotic agents; Z88.2 Allergy status to sulfonamides; Z79.899 Other long term (current) drug therapy; Z85.41 Personal history of malignant neoplasm of cervix uteri; Z86.73 Personal history of transient ischemic attack (TIA), and cerebral infarction without residual deficits; Z90.710 Acquired absence of both cervix and uterus

== ENCOUNTER → 2021-12-06 | Outpatient (CLI) | payer OTHER | END | disposition home or self-care (01) | LOC: MAMMO 11:30 | PROVIDERS: ATTEND Physician Assistant | DX: Z12.31 Encounter for screening mammogram for malignant neoplasm of breast (principal); N64.9 Disorder of breast, unspecified ==

== ENCOUNTER → 2022-01-24 | Outpatient (CLI) | payer OTHER | END | disposition home or self-care (01) | LOC: RAD 10:42 | PROVIDERS: ATTEND Family Medicine | DX: J44.1 Chronic obstructive pulmonary disease with (acute) exacerbation (principal) ==

== ENCOUNTER 2022-06-03 06:10 | Emergency (ER) | payer MEDICARE ==
[2022-06-03 06:38] LABS: BASO # 0.1 10*3/uL (0.0-0.1); EOS # 0.1 10*3/uL (0.0-0.4); EOS % 2.9 % (1.0-4.0); HEMATOCRIT 35.8 % (37.0-47.0); LYMPH # 1.4 10*3/uL (1.3-4.4); LYMPH % 29.4 % (27.0-41.0); MEAN CELL VOLUME 99.7 fl (81.0-99.0); MEAN CORPUSCULAR HGB 33.7 pg (27.0-31.0); MEAN CORPUSCULAR HGB CONC 33.8 g/dl (33.0-37.0); MEAN PLATELET VOLUME 9.4 fl (9.6-12.3); MONO # 0.6 10*3/uL (0.1-1.0); MONO % 12.7 % (3.0-9.0); NEUT # 2.6 10*3/uL (2.3-7.9); NEUT % 53.8 % (47.0-73.0); PLATELET COUNT AUTOMATED 126 10*3/uL (130-400); RED BLOOD COUNT 3.59 10*6/uL (4.10-5.10); RED CELL DISTRI WIDTH 13.3 % (0-14.5); WHITE BLOOD COUNT 4.8 10*3/uL (4.8-10.8)
[2022-06-03 06:54] LABS: POTASSIUM 3.6 mmol/L (3.4-5.1); TOTAL PROTEIN 6.1 gm/dL (6.0-8.0)
[2022-06-03 08:19] VITALS: BP 123/50
[2022-06-03] MEDS ORDERED: PREDNISONE50 MG PO (09:14)
[2022-06-03] MEDS ORDERED: VIBRA-TAB100 MG PO (09:14)
[2022-06-03] MEDS ORDERED: OXYCODONE HCL5 MG PO (09:14)
== END 2022-06-03 09:28 | disposition home or self-care (01) ==
LOC: ED 06:10
PROVIDERS: Emergency Medicine
DX: J44.1 Chronic obstructive pulmonary disease with (acute) exacerbation (principal); M48.56XA Collapsed vertebra, not elsewhere classified, lumbar region, initial encounter for fracture; Z88.1 Allergy status to other antibiotic agents; Z88.8 Allergy status to other drugs, medicaments and biological substances; Z79.899 Other long term (current) drug therapy; Z90.710 Acquired absence of both cervix and uterus; Z90.89 Acquired absence of other organs; F17.210 Nicotine dependence, cigarettes, uncomplicated

== ENCOUNTER 2022-06-21 08:21 | Emergency (ER) | payer MEDICARE ==
[~2022-06-21] VITALS: Ht 175.2 cm; Wt 81.6 kg
[~2022-06-21 08:21] MED LIST changes: +OXYCODONE HCL5 MG PO; +PREDNISONE50 MG PO; +VIBRA-TAB100 MG PO
[2022-06-21 08:35] VITALS: BP 134/58
[2022-06-21] MEDS ORDERED: PERCOCET 5-3251 EACH PO (10:10)
== END 2022-06-21 10:25 | disposition home or self-care (01) ==
LOC: ED 08:21
DX: S32.030A Wedge compression fracture of third lumbar vertebra, initial encounter for closed fracture (principal); Z88.1 Allergy status to other antibiotic agents; Z88.8 Allergy status to other drugs, medicaments and biological substances; Z79.899 Other long term (current) drug therapy; Z90.710 Acquired absence of both cervix and uterus; Z90.89 Acquired absence of other organs; F17.210 Nicotine dependence, cigarettes, uncomplicated; X58.XXXA Exposure to other specified factors, initial encounter; Y93.89 Activity, other specified; Y92.89 Other specified places as the place of occurrence of the external cause; Y99.8 Other external cause status

== ENCOUNTER → 2023-02-04 | Outpatient (CLI) | payer OTHER ==
[~2023-02-04] MED LIST changes: +ASPIRIN CHILDRE81 MG PO; +ATORVASTATIN CA80 M1 PO; +CLOPIDOGREL75 MG PO; +DOXYCYCLINE HY100 M3 PO; +ESTRADIOL42.5 GM V; +FOSFOMYCIN TROME3 GM PO; +LACTULOSE10 GM/151 PO; +LATANOPROST2.5 ML OP; +LEVOTHYROXINE100 MC1 PO; +LEVOTHYROXINE50 MCG PO; +MELOXICAM15 MG PO; +MUCUS RELIEF600 MG PO; +PERCOCET 5-3251 EACH PO; +SINEMET 25-1001 EACH PO; +VENT7GM INH; +ZYRTEC10 M2 PO
[2023-02-04 11:10] LABS: BASO # 0.1 10*3/uL (0.0-0.1); BASO % 0.8 % (0.0-1.0); EOS # 0.1 10*3/uL (0.0-0.4); EOS % 1.5 % (1.0-4.0); HEMATOCRIT 34.7 % (37.0-47.0); LYMPH # 1.5 10*3/uL (1.3-4.4); LYMPH % 20.2 % (27.0-41.0); MEAN CELL VOLUME 100.9 fl (81.0-99.0); MEAN CORPUSCULAR HGB 32.8 pg (27.0-31.0); MEAN CORPUSCULAR HGB CONC 32.6 g/dl (33.0-37.0); MEAN PLATELET VOLUME 9.3 fl (9.6-12.3); MONO # 0.9 10*3/uL (0.1-1.0); MONO % 12.5 % (3.0-9.0); NEUT # 4.6 10*3/uL (2.3-7.9); NEUT % 64.6 % (47.0-73.0); PLATELET COUNT AUTOMATED 182 10*3/uL (130-400); RED BLOOD COUNT 3.44 10*6/uL (4.10-5.10); RED CELL DISTRI WIDTH 14.9 % (0-14.5); WHITE BLOOD COUNT 7.2 10*3/uL (4.8-10.8)
[2023-02-04 11:23] LABS: ACT PARTIAL THROMBO TIME 27.9 SECONDS (20.0-32.1)
[2023-02-04 11:44] LABS: FREE T4 0.96 ng/dl (0.89-1.76); POTASSIUM 3.6 mmol/L (3.4-5.1); TOTAL PROTEIN 6.6 gm/dL (6.0-8.0)
[2023-02-05 06:08] LABS: HEPATITIS B SURFACE AB Non Reactive (.)
[2023-02-05 07:06] LABS: ALPHA-1-ANTITRYPSIN, SERUM 181 mg/dL (101-187)
[2023-02-05 14:07] LABS: ANTI-SMOOTH MUSCLE ANTIBODY 11 Units (0-19)
[2023-02-05 15:06] LABS: HEPATITIS C QUANTITATION HCV Not Detected IU/mL (.)
== END | disposition home or self-care (01) ==
LOC: LAB 10:09
PROVIDERS: ATTEND Internal Medicine
DX: C22.9 Malignant neoplasm of liver, not specified as primary or secondary (principal); K70.30 Alcoholic cirrhosis of liver without ascites

== ENCOUNTER 2023-04-25 20:44 | Emergency (ER) | payer MEDICARE, OTHER ==
[~2023-04-25] VITALS: Ht 175.2 cm; Wt 90.3 kg
[~2023-04-25 20:44] MED LIST changes: +ZITHROMAX500 MG PO
[2023-04-25 20:49] VITALS: BP 127/69
[2023-04-25 21:10] LABS: BASO % 0.1 % (0.0-1.0); HEMATOCRIT 31.4 % (37.0-47.0); LYMPH # 0.5 10*3/uL (1.3-4.4); MEAN CELL VOLUME 96.6 fl (81.0-99.0); MEAN CORPUSCULAR HGB 32.3 pg (27.0-31.0); MEAN CORPUSCULAR HGB CONC 33.4 g/dl (33.0-37.0); MEAN PLATELET VOLUME 8.8 fl (9.6-12.3); MONO % 11.5 % (3.0-9.0); NEUT # 7.1 10*3/uL (2.3-7.9); NEUT % 82.1 % (47.0-73.0); PLATELET COUNT AUTOMATED 207 10*3/uL (130-400); RED BLOOD COUNT 3.25 10*6/uL (4.10-5.10); RED CELL DISTRI WIDTH 14.8 % (0-14.5); WHITE BLOOD COUNT 8.7 10*3/uL (4.8-10.8)
[2023-04-25 21:26] LABS: ACT PARTIAL THROMBO TIME 26.7 SECONDS (20.0-32.1)
[2023-04-25 21:28] LABS: POTASSIUM 4.1 mmol/L (3.4-5.1); TOTAL PROTEIN 6.7 gm/dL (6.0-8.0)
[2023-04-25] MEDS ORDERED: NEO-SYNEPHRINE1516 NAS (23:10)
== END 2023-04-25 23:39 | disposition home or self-care (01) ==
LOC: ED 20:44
PROVIDERS: Internal Medicine
DX: R04.0 Epistaxis (principal); J44.9 Chronic obstructive pulmonary disease, unspecified; F17.200 Nicotine dependence, unspecified, uncomplicated; Z88.8 Allergy status to other drugs, medicaments and biological substances; Z88.1 Allergy status to other antibiotic agents; Z88.2 Allergy status to sulfonamides; Z79.899 Other long term (current) drug therapy; Z79.2 Long term (current) use of antibiotics; Z79.82 Long term (current) use of aspirin; Z90.711 Acquired absence of uterus with remaining cervical stump

== ENCOUNTER → 2023-04-26 | Emergency (ER) | payer MEDICARE, OTHER ==
[~2023-04-26] VITALS: Ht 175.2 cm; Wt 81.6 kg
[~2023-04-26] MED LIST changes: +NEO-SYNEPHRINE1516 NAS
[2023-04-26 17:13] VITALS: BP 111/53
== END ==
LOC: ED 17:05
DX: R35.0 Frequency of micturition (principal); R30.9 Painful micturition, unspecified; Z53.21 Procedure and treatment not carried out due to patient leaving prior to being seen by health care provider

== ENCOUNTER 2023-05-03 19:29 | Emergency (ER) | payer MEDICARE, OTHER ==
[~2023-05-03] VITALS: Ht 175.2 cm; Wt 84.6 kg
[2023-05-03 20:32] LABS: BILIRUBIN 1+ (Negative); BLOOD 3+ (Negative); CLARITY Turbid (Clear); COLOR Red (Yellow); GLUCOSE Negative (Negative); KETONE Negative (Negative); LEUKO ESTERASE 3+ (Negative); NITRITE Positive (Negative); PH 5.5 (4.5-8.0); SPECIFIC GRAVITY 1.015 (1.001-1.030); UROBILINOGEN 0.2 E.U./dl (0.0-1.0)
[2023-05-03 20:39] LABS: URINE AMPHETAMINES Negative (1000ng/ml); URINE BARBITURATES Negative (200ng/ml); URINE BENZODIAZEPINES Negative (200ng/ml); URINE CANNABINOIDS (THC) Negative (50ng/ml); URINE COCAINE Negative (300ng/ml); URINE METHADONE Negative (300ng/ml); URINE OPIATES Negative (300ng/ml); URINE PHENCYCLIDINE Negative (25ng/ml)
[2023-05-03 20:41] LABS: BASO % 0.5 % (0.0-1.0); EOS # 0.2 10*3/uL (0.0-0.4); EOS % 2.2 % (1.0-4.0); HEMATOCRIT 33.3 % (37.0-47.0); LYMPH # 1.5 10*3/uL (1.3-4.4); LYMPH % 20.4 % (27.0-41.0); MEAN CELL VOLUME 97.7 fl (81.0-99.0); MEAN CORPUSCULAR HGB 32.3 pg (27.0-31.0); MEAN PLATELET VOLUME 8.5 fl (9.6-12.3); MONO # 1.1 10*3/uL (0.1-1.0); MONO % 14.1 % (3.0-9.0); NEUT # 4.7 10*3/uL (2.3-7.9); NEUT % 62.5 % (47.0-73.0); PLATELET COUNT AUTOMATED 188 10*3/uL (130-400); RED BLOOD COUNT 3.41 10*6/uL (4.10-5.10); RED CELL DISTRI WIDTH 14.6 % (0-14.5); WHITE BLOOD COUNT 7.4 10*3/uL (4.8-10.8)
[2023-05-03 21:04] LABS: BACTERIA 4+; RBC TNTC rbc/hpf (0-2); WBC TNTC wbc/hpf (0-5)
[2023-05-03 21:06] LABS: POTASSIUM 3.5 mmol/L (3.4-5.1); TOTAL PROTEIN 6.1 gm/dL (6.0-8.0)
[2023-05-04 01:02] VITALS: BP 105/54
[2023-05-04] MEDS ORDERED: AMOX-CLAV 875-1 EACH PO (02:30)
== END 2023-05-04 04:12 | disposition home or self-care (01) ==
LOC: ED 19:29
PROVIDERS: Emergency Medicine
DX: N39.0 Urinary tract infection, site not specified (principal); R16.0 Hepatomegaly, not elsewhere classified; J44.9 Chronic obstructive pulmonary disease, unspecified; I50.9 Heart failure, unspecified; F32.A Depression, unspecified; K21.9 Gastro-esophageal reflux disease without esophagitis; E43 Unspecified severe protein-calorie malnutrition; N18.30 Chronic kidney disease, stage 3 unspecified; E03.9 Hypothyroidism, unspecified; E78.00 Pure hypercholesterolemia, unspecified; F17.210 Nicotine dependence, cigarettes, uncomplicated; Z87.442 Personal history of urinary calculi; Z88.8 Allergy status to other drugs, medicaments and biological substances; Z88.1 Allergy status to other antibiotic agents; Z88.2 Allergy status to sulfonamides; Z79.899 Other long term (current) drug therapy; Z79.82 Long term (current) use of aspirin; Z86.73 Personal history of transient ischemic attack (TIA), and cerebral infarction without residual deficits; Z90.711 Acquired absence of uterus with remaining cervical stump